=== PATIENT | female | born 1975 | race Caucasian/White ===

== ENCOUNTER 2020-04-13 13:31 | Emergency (ER) | payer OTHER, SELFPAY ==
[2020-04-13] VITALS (7 sets, daily range): BP systolic 124–132; BP diastolic 77–88; PULSE 60–82; RESP 15–16; TEMP 36.4; O2SAT 95–99; BMI 34.4
[2020-04-13 14:27] LABS: RBC Urine None Seen (0-5/HPF)
[2020-04-13 14:29] LABS: Appearance Urine UA CLEAR; Bilirubin Urine UA NEGATIVE (NEGATIVE); Color Urine UA YELLOW; Glucose Urine UA NEGATIVE (Negative); Ketones Urine UA NEGATIVE (NEGATIVE); Leukocyte Esterase Urine UA NEGATIVE (NEGATIVE); Nitrite Urine UA NEGATIVE (Negative); Occult Blood Urine UA NEGATIVE (Negative); Protein Urine UA TRACE (Negative); Specific Gravity Urine UA >=1.030 (1.000-1.035); Urobilinogen Urine UA 0.2 E.U./dL (0.2)
[2020-04-13 14:43] LABS: Bacteria Urine Occasional (0-1); Culture Indicated Urine Specimen Cultured; Squamous Epithelial Cell Urine 0-1 /HPF (0-5/HPF); WBC Urine 1-5/HPF (0-5/HPF)
[2020-04-13 15:55] LABS: Add Manual Diff / Slide Review NO; Basophils Absolute Auto 0 /uL (0-100); Basophils Percent Auto 0.5 % (0-2); Eosinophils Absolute Auto 300 /uL (0-450); Eosinophils Percent Auto 2.7 % (2-4); Hematocrit 37.3 % (36-46); Hemoglobin 12.8 g/dL (12.0-16.0); Lymphocytes Absolute Auto 2500 /uL (1100-4500); Lymphocytes Percent Auto 24.7 % (25-40); Mean Corpuscular HGB Conc 34.4 % (30-36); Mean Corpuscular Hemoglobin 31.3 PG (26-34); Monocytes Absolute Auto 600 /uL (0-900); Monocytes Percent Auto 6.2 % (3-14); Neutrophils Absolute Auto 6600 /uL (1500-7000); Neutrophils Percent Auto 65.9 % (50-75); Platelet Count 240 X10^3/uL (150-400); Red Cell Distribution Width 12.4 % (11.6-14.8)
[2020-04-13 16:07] LABS: Alanine Aminotransferase 133 IU/L (<35); Albumin Globulin Ratio 1.1 (1.0-2.8); Alkaline Phosphatase 132 U/L (38-126); Aspartate Aminotransferase 100 IU/L (14-36); BUN Creatinine Ratio 14.2 (6-22); Bilirubin Total 0.6 mg/dL (0.2-1.3); Blood Urea Nitrogen 21 mg/dL (7-17); Carbon Dioxide 26 mmol/L (22-32); Chloride 106 mmol/L (98-107); Estimated Glomerular Filt Rate 38.1 mL/min (>60); Globulin 3.7 g/dL (1.7-4.1); Glucose 89 mg/dL (70-100); HEMOLYSIS < 15 (0-50); Potassium 4.1 mmol/L (3.4-5.1); Sodium 138 mmol/L (137-145); Total Protein 7.7 g/dL (6.3-8.2)
--- NOTE | 2020-04-13 16:35 | ED.FEMALEGU ---
HPI - Female Genitourinary General Chief complaint: Urogenital-Female Stated complaint: UTI dx 04/10, worsening kidney pain Time Seen by Provider: 04/13/20 15:49 Source: patient Mode of arrival: Ambulatory Limitations: no limitations History of Present Illness HPI Narrative: Patient is a 45-year-old female with history of fibromyalgia and recent diagnosis of UTI 3 days ago started on Cipro presenting with increasing right flank pain radiating to her front. She says she does have some chronic ongoing back pain on sometimes has pain down to her leg but now seems to be more on her stomach. She feels nauseous at times no vomiting. Sometime she has been waking up in a drenching sweat, unclear if she has had a fever. She has no prior history of kidney stones. She has been taking [id number] Momo for pain and she says it has not helped. MD Complaint: UTI Onset (ago): day(s) Female Urogenital Radiation: R Flank Severity: moderate Quality: Sharp Duration: constant and progressively worsening Related Data Previous Rx's Medication Instructions Recorded omeprazole magnesium [Prilosec OTC] 20 mg PO QDAY #20 06/22/16 ondansetron [Zofran ODT] 4 mg SUBLINGUAL Q6HP PRN #10 odt 06/22/16 hydrocodone-acetaminophen 1 tab PO Q6H PRN #10 tab 04/13/20 ondansetron 4 mg PO Q8H PRN #10 tab 04/13/20 Allergies Allergy/AdvReac Type Severity Reaction Status Date / Time fentanyl [FENTANYL] Allergy Severe HALLUCINATIONS, Unverified 07/06/17 12:04 EMOTIONAL LABILITY Sulfa (Sulfonamide Allergy Unknown HIVES, Unverified 07/06/17 12:04 Antibiotics) DIFFICULTY [SULFA (SULFONAMIDE BREATHING ANTIBIOTICS)] sulfamethoxazole Allergy Unknown Unverified 07/06/17 12:04 [From ] trimethoprim [From ] Allergy Unknown Unverified 07/06/17 12:04 IV DYE CONTRAST Allergy Unknown HIVES Uncoded 07/06/17 12:04 Review of Systems Review of Systems Narrative: GENERAL:+ sweats, +fever Denies chills, fatigue, malaise, travel HEENT: Denies sinus pain, ear pain, sore throat, difficulty swallowing, neck pain RESPIRATORY: Denies dyspnea, cough, wheezing, hemoptysis, sputum. CARDIOVASCULAR: Denies chest pain, palpitations, orthopnea, edema GASTROINTESTINAL: Denies nausea, vomiting, abdominal pain, diarrhea, constipation, melena. : See HPI MUSCULOSKELETAL: Denies weakness, joint pain, or bony pain SKIN: No rash, no erythema, no pruritus NEUROLOGIC: Denies weakness, dizziness, headache, numbness, change in speech, confusion PSYCHIATRIC: No concerning psychosocial issues. 12 point review of systems is negative except for those stated above and HPI Patient History Medical History (Updated 04/13/20 @ 18:23 by Felisa Mckeon DO) Anxiety Bipolar disorder, unspecified Depression Fibromyalgia Hoarding behavior Interpersonal problem Learning disabilities Stress Surgical History (Updated 04/13/20 @ 17:01 by Felisa Mckeon DO) Status post appendectomy Status post cholecystectomy Substance Use Type: marijuana Exam Initial Vital Signs Initial Vital Signs: Vital Signs Temperature 97.6 F 04/13/20 14:06 Pulse Rate 72 04/13/20 14:06 Respiratory Rate 16 04/13/20 14:06 Blood Pressure 132/82 04/13/20 14:06 Pulse Oximetry 98 04/13/20 14:06 GENERAL: 45-year-old female appears comfortable on bed and in no acute distress. HEENT: Head atraumatic,EOMI, pupils reactive, face symmetric, moist mucous membranes CARDIOVASCULAR: Regular rate and rhythm without murmurs, rubs or gallops. RESPIRATORY: Breath sounds equal bilaterally, no wheezes rales or rhonchi. ABDOMEN: Soft, severe suprapubic tenderness right lower quadrant pain some left lower quadrant pain as well no guarding or rebound : Right CVA tenderness EXTREMITIES: Normal range of motion, no clubbing or edema. Neurovascularly intact NEUROLOGICAL: Alert and oriented x4.Normal gait and speech. SKIN: Warm, dry, no laceration, no petechiae, no rashes or lesions. Course Orders Ordered: ED Orders 04/13/20 14:22 Test Urine Stat Urinalysis and Microscopic Stat Urine Culture Stat 04/13/20 15:43 CBC Auto Diff [Complete Blood Count AUTO DIFF] Stat CMP [Comprehensive Metabolic Panel] Stat 04/13/20 16:39 CT kidney ureter bladder (KUB) Stat Discontinued Medications Ketorolac Tromethamine (Ketorolac 60 Mg/2 Ml Vial) 15 mg IV NOW ONE Stop: 04/13/20 16:40 Last Admin: 04/13/20 16:52 Dose: 15 mg Documented by: MELVIN Vital Signs Vital signs: Vital Signs - 8 hr 04/13/20 14:06 04/13/20 15:43 04/13/20 16:00 Temperature 97.6 F Pulse Rate 72 65 67 Respiratory Rate 16 Blood Pressure 132/82 129/77 131/80 Pulse Oximetry 98 98 95 04/13/20 16:30 04/13/20 17:00 04/13/20 17:30 Temperature Pulse Rate 72 65 60 Respiratory Rate Blood Pressure Pulse Oximetry 97 96 95 MDM - Female Genitourinary Lab Data Attestation: I reviewed the patient's lab results. Result diagrams: 04/13/20 15:43 04/13/20 15:43 Labs: Lab Results 04/13/20 04/13/20 04/13/20 Range/Units 14:22 14:22 15:43 WBC 10.0 (4.5-11.0) X10^3/uL RBC 4.10 (4.0-5.2) X10^6/uL Hgb 12.8 (12.0-16.0) g/dL Hct 37.3 (36-46) % MCV 91.0 (80-100) fL MCH 31.3 (26-34) PG MCHC 34.4 (30-36) % RDW 12.4 (11.6-14.8) % Plt Count 240 (150-400) X10^3/uL Neut % (Auto) 65.9 (50-75) % Lymph % (Auto) 24.7 L (25-40) % [place] % (Auto) 6.2 (3-14) % Eos % (Auto) 2.7 (2-4) % Baso % (Auto) 0.5 (0-2) % Neut # (Auto) 6600 (1473-6098) /uL Lymph # (Auto) 2500 (7270-3059) /uL [place] # (Auto) 600 (0-900) /uL Eos # (Auto) 300 (0-450) /uL Baso # (Auto) 0 (0-100) /uL Sodium (137-145) mmol/L Potassium (3.4-5.1) mmol/L Chloride (98-107) mmol/L Carbon Dioxide (22-32) mmol/L BUN (7-17) mg/dL Creatinine (0.52-1.04) mg/dL Estimated GFR (>60) mL/min BUN/Creatinine Ratio (6-22) Glucose (70-100) mg/dL Calcium (8.4-10.2) mg/dL Total Bilirubin (0.2-1.3) mg/dL AST (14-36) IU/L ALT (<35) IU/L Alkaline Phosphatase (38-126) U/L Total Protein (6.3-8.2) g/dL Albumin (3.5-5.0) g/dL Globulin (1.7-4.1) g/dL Albumin/Globulin Ratio (1.0-2.8) Urine Color Yellow Urine Appearance Clear Urine pH 5.0 (4.5-8.0) Ur Specific [place] >=1.030 H (1.000-1.035) Urine Protein Trace H (Negative) Urine Glucose (UA) Negative (Negative) g/dL Urine Ketones Negative (NEGATIVE) Urine Occult Blood Negative (Negative) Urine Nitrate Negative (Negative) Urine Bilirubin Negative (NEGATIVE) Urine Urobilinogen 0.2 (0.2) E.U./dL Ur Leukocyte Esterase Negative (NEGATIVE) Urine RBC None seen (0-5/HPF) Urine WBC 1-5/hpf (0-5/HPF) Ur Squamous Epith Cells 0-1 /hpf (0-5/HPF) Urine Bacteria Occasional (0-1) (None) Ur Culture Indicated? Specimen cultured Urine Test Negative (Negative) 04/13/20 Range/Units 15:43 WBC (4.5-11.0) X10^3/uL RBC (4.0-5.2) X10^6/uL Hgb (12.0-16.0) g/dL Hct (36-46) % MCV (80-100) fL MCH (26-34) PG MCHC (30-36) % RDW (11.6-14.8) % Plt Count (150-400) X10^3/uL Neut % (Auto) (50-75) % Lymph % (Auto) (25-40) % [place] % (Auto) (3-14) % Eos % (Auto) (2-4) % Baso % (Auto) (0-2) % Neut # (Auto) (7113-0860) /uL Lymph # (Auto) (5415-3768) /uL [place] # (Auto) (0-900) /uL Eos # (Auto) (0-450) /uL Baso # (Auto) (0-100) /uL Sodium 138 (137-145) mmol/L Potassium 4.1 (3.4-5.1) mmol/L Chloride 106 (98-107) mmol/L Carbon Dioxide 26 (22-32) mmol/L BUN 21 H (7-17) mg/dL Creatinine 1.48 H (0.52-1.04) mg/dL Estimated GFR 38.1 L (>60) mL/min BUN/Creatinine Ratio 14.2 (6-22) Glucose 89 (70-100) mg/dL Calcium 9.0 (8.4-10.2) mg/dL Total Bilirubin 0.6 (0.2-1.3) mg/dL AST 100 H (14-36) IU/L ALT 133 H (<35) IU/L Alkaline Phosphatase 132 H (38-126) U/L Total Protein 7.7 (6.3-8.2) g/dL Albumin 4.0 (3.5-5.0) g/dL Globulin 3.7 (1.7-4.1) g/dL Albumin/Globulin Ratio 1.1 (1.0-2.8) Urine Color Urine Appearance Urine pH (4.5-8.0) Ur Specific [place] (1.000-1.035) Urine Protein (Negative) Urine Glucose (UA) (Negative) g/dL Urine Ketones (NEGATIVE) Urine Occult Blood (Negative) Urine Nitrate (Negative) Urine Bilirubin (NEGATIVE) Urine Urobilinogen (0.2) E.U./dL Ur Leukocyte Esterase (NEGATIVE) Urine RBC (0-5/HPF) Urine WBC (0-5/HPF) Ur Squamous Epith Cells (0-5/HPF) Urine Bacteria (None) Ur Culture Indicated? Urine Test (Negative) Imaging Data CT scan - abdomen/pelvis: Radiologist's Impression: PROCEDURE: CT KIDNEY URETER BLADDER (KUB) INDICATIONS: right flank pain TECHNIQUE: Noncontrast 5 mm thick sections acquired from the diaphragms to the symphysis. 5 mm thick coronal and sagittal reformats were then performed. For radiation dose reduction, the following was used: automated exposure control, adjustment of mA and/or kV according to patient size. COMPARISON: None. FINDINGS: Image quality: Excellent. Lung bases: Lung bases are clear. Heart size is normal. Urinary system: Both kidneys are normal in size. Obstructing calculus at the right UVJ measuring 3 mm, (2/84). Moderate right hydroureteronephrosis. Additional nonobstructing calculus in the mid left kidney measuring 2 mm. Bladder wall thickness is normal; no calcified bladder stones. Other solid organs: Liver is normal in size. Gallbladder is surgically absent. Pancreas is normal in contours. Spleen is normal in size. No adrenal nodules. Peritoneum and bowel: Unenhanced bowel loops demonstrate normal wall thickness and caliber. No free fluid or air. The appendix is surgically absent. Nodes and vessels: No retroperitoneal or mesenteric adenopathy by size criteria. Aorta and inferior vena cava are normal in caliber. Abdominal wall: No ventral hernias. Pelvis: No free pelvic fluid. No inguinal hernias or adenopathy. Elongated appearing anteverted uterus. Bones: No suspicious bony lesions. No vertebral body compression fractures. IMPRESSION: 1. Obstructing calculus at the right UVJ measuring 3 mm. Moderate right hydroureteronephrosis. 2. Additional nonobstructing left kidney stone. 3. Appendix is surgically absent. Dictated by: Bobby Gil M.D. on 04/13/2020 at 18:11 Approved by: Bobby Gil M.D. on 04/13/2020 at 18:16 MDM Narrative Medical decision making narrative: Patient's pain is significantly better after Toradol. Kidney stone is found 3 mm at UVJ. Urine today does not show any infection however recommend she finish her antibiotic. Intake pain medication as needed for her kidney stone. Discharge Plan Departure Patient Disposition: Home Clinical Impression: Kidney stone on right side Instructions: DI for Kidney Stones Activity Restrictions/Additional Instructions: * You've been diagnosed with kidney stone * What to do: Increase fluid intake, Strain urine, try to catch stone * Please follow-up with your primary care provider in the next 2-3 days, you may require urology consultation please discuss this with -If you should have fever, or pain is uncontrolled with medication at home or any other concerning symptoms return to ER for further evaluation MEDICATIONS Take Motrin 800 mg every 8 hours as needed for pain Take [place] every 6 hours if needed for severe pain Take Zofran every 4-6 hours if needed for nausea -continue taking your antibiotic as previously prescribed CONTROLLED SUBSTANCE DISCHARGE (Narcotoic/benzodiazepine) 1. You have been prescribed narcotic medications, it does have acetaminophen/Tylenol/paracetamol in it so do not take extra Tylenol or Tylenol containing products 2. Please understand that we cannot provide further refills of narcotics, benzodiazepines or controlled substances through the ED and her pain management will need to be through your provider. 3. While on these medications you cannot drive or operate heavy machinery. 4. You cannot sign legal documents or perform any duties such as this. 5. As long as you're taking opiate pain medications he should also be taking a stool softener such as Colace, Dulcolax, MiraLAX or prune juice, to help avoid constipation. Prescriptions: New hydrocodone-acetaminophen 5-325 mg tablet 1 tab PO Q6H PRN (Reason: pain) Qty: 10 RF: 0 ondansetron 4 mg tablet,disintegrating 4 mg PO Q8H PRN (Reason: nausea and vomiting) Qty: 10 RF: 0 No Action omeprazole magnesium [Prilosec OTC] 20 MG tablet,delayed release (DR/EC) 20 mg PO QDAY Qty: 20 RF: 0 ondansetron [Zofran ODT] 4 MG tablet,disintegrating 4 mg Sublingual Q6HP PRNQty: 10 RF: 0
--- NOTE | 2020-04-13 16:39 | DI.CT.S_ITS ---
PROCEDURE: CT KIDNEY URETER BLADDER (KUB) INDICATIONS: right flank pain TECHNIQUE: Noncontrast 5 mm thick sections acquired from the diaphragms to the symphysis. 5 mm thick coronal and sagittal reformats were then performed. For radiation dose reduction, the following was used: automated exposure control, adjustment of mA and/or kV according to patient size. COMPARISON: None. FINDINGS: Image quality: Excellent. Lung bases: Lung bases are clear. Heart size is normal. Urinary system: Both kidneys are normal in size. Obstructing calculus at the right UVJ measuring 3 mm, (2/84). Moderate right hydroureteronephrosis. Additional nonobstructing calculus in the mid left kidney measuring 2 mm. Bladder wall thickness is normal; no calcified bladder stones. Other solid organs: Liver is normal in size. Gallbladder is surgically absent. Pancreas is normal in contours. Spleen is normal in size. No adrenal nodules. Peritoneum and bowel: Unenhanced bowel loops demonstrate normal wall thickness and caliber. No free fluid or air. The appendix is surgically absent. Nodes and vessels: No retroperitoneal or mesenteric adenopathy by size criteria. Aorta and inferior vena cava are normal in caliber. Abdominal wall: No ventral hernias. Pelvis: No free pelvic fluid. No inguinal hernias or adenopathy. Elongated appearing anteverted uterus. Bones: No suspicious bony lesions. No vertebral body compression fractures. IMPRESSION: 1. Obstructing calculus at the right UVJ measuring 3 mm. Moderate right hydroureteronephrosis. 2. Additional nonobstructing left kidney stone. 3. Appendix is surgically absent. Dictated by: Bobby Gil M.D. on 04/13/2020 at 18:11 Approved by: Bobby Gil M.D. on 04/13/2020 at 18:16
[2020-04-13] MEDS: KETOROLAC 60 MG/2 ML VIAL 15 MG IV (16:52)
[2020-04-13 17:57] LABS: Pregnancy Test Urine Negative (Negative)
== END 2020-04-13 19:08 | disposition home or self-care (01) ==
PROVIDERS: Emergency Provider Emergency Medicine
DX: N20.0 Calculus of kidney (principal); R11.0 Nausea
CPT/HCPCS: 36415; 74176; 80053; 81001; 81025; 85025; 87086; 96374; 99281; 99284; J1885

== ENCOUNTER → 2021-01-10 12:55 | Outpatient (CLI) | payer OTHER, SELFPAY ==
--- NOTE | 2021-01-10 12:58 | DI.MRI.S_ITS ---
PROCEDURE: MR KNEE RT WO CON INDICATIONS: Pain in right knee TECHNIQUE: Noncontrast sagittal PD fast spin echo and T2 fast spin echo with fat saturation, sagittal 3-D FLASH with fat saturation; coronal T1 spin echo and PD fast spin echo with fat saturation, and axial PD fast spin echo with fat saturation through the knee. COMPARISON: None. FINDINGS: Image quality: Excellent. Menisci: The medial and lateral menisci demonstrate normal morphology and internal signal. The meniscal root ligaments appear intact. Cruciate ligaments: The anterior and posterior cruciate ligaments appear intact. Medial structures: The medial collateral ligament appears intact. The visualized portions of the pes anserinus tendons appear normal. No abnormal bursal fluid. Lateral structures: The lateral collateral ligament complex is intact. The popliteus tendon appears normal; the popliteofibular ligament appears intact. The iliotibial band appears normal. Anterior structures: The quadriceps and patellar tendons appear intact. Patellar alignment is normal. No femoral trochlear dysplasia or ventral trochlear prominence. No edema in the infrapatellar fat pad. Bones and cartilage: No bone marrow contusions or fractures. The cartilage of the medial and lateral compartments appears normal in thickness. A 1.4 cm fissure is seen in the patella apex hyaline cartilage (6/9). An additional 1.5 cm defect is seen in the trochlear hyaline cartilage (8/17). Joint space: Small suprapatellar joint effusion. No Fischer's cyst. Normal appearing synovial plicae are incidentally noted. IMPRESSION: 1. No evidence of internal derangement. 2. Fissures of the patellar and trochlear hyaline cartilage as detailed above. Dictated by: Avel Montiel M.D. on 01/12/2021 at 8:32 Approved by: Avel Montiel M.D. on 01/12/2021 at 8:39
== END ==
PROVIDERS: PCP Family Medicine; Referring Provider Family Medicine; Visit Provider Family Medicine
DX: M25.561 Pain in right knee (principal)
CPT/HCPCS: 73721

== ENCOUNTER → 2021-02-26 16:52 | Outpatient (CLI) | payer OTHER, SELFPAY ==
--- NOTE | 2021-02-26 | DI.MG.S_ITS ---
BILATERAL DIGITAL SCREENING MAMMOGRAM 3D/2D WITH CAD: 02/26/2021 CLINICAL: Routine screening. Comparison is made to exams dated: 01/26/2016 mammogram - [facility], 12/08/2015 mammogram, 07/21/2015 ultrasound, and 07/21/2015 mammogram - [facility]. The tissue of both breasts is predominantly fatty. Current study was also evaluated with a Computer Aided Detection (CAD) system. There is a biopsy clip in the right breast. No significant masses, calcifications, or other findings are seen in either breast. There has been no significant interval change. IMPRESSION: NEGATIVE There is no mammographic evidence of malignancy. A 1 year screening mammogram is recommended. This exam was interpreted at Station ID: [id number]. NOTE: For mammograms, a report in lay terms will be sent to the patient. Approximately 15% of breast malignancies will not be visualized mammographically. In the management of a palpable breast mass, a negative mammogram must not discourage biopsy of a clinically suspicious lesion. Electronically Signed By: Gurmeet henry/padma:02/27/2021 07:16:29 copy to: Erasmo Jenkins letter sent: Normal Exam ACR BI-RADS Category 1: Negative [id number]
== END ==
PROVIDERS: PCP Family Medicine; Referring Provider Family Medicine; Visit Provider Family Medicine
DX: Z12.31 Encounter for screening mammogram for malignant neoplasm of breast (principal)
CPT/HCPCS: 77063; 77067

== ENCOUNTER → 2021-03-13 14:52 | Outpatient (CLI) | payer OTHER, SELFPAY ==
[2021-03-14 06:32] LABS: Candida species Negative (Negative); Gardnerella vaginalis Positive (Negative); Trichomoas vaginalis Negative (Negative)
== END ==
PROVIDERS: PCP Family Medicine; Visit Provider Obstetrics & Gynecology
DX: N89.8 Other specified noninflammatory disorders of vagina (principal)
CPT/HCPCS: 87480; 87510; 87660

== ENCOUNTER 2021-06-09 11:15 | Outpatient (RCR) | payer OTHER, SELFPAY ==
--- NOTE | 2021-04-23 17:17 | PT.OIE ---
Current Diagnoses Other specified disorders of muscle (04/28/21) Past Medical History (Last Reviewed 03/14/21 @ 21:31 by Tara Esteban MD) Allergies Ankle pain Anxiety (~2001) Asthma Bipolar disorder, unspecified Chronic back pain Depression (~2001) Far-sightedness Fibromyalgia History of section (~2002) Hoarding behavior Hyperthyroidism (~2016) Interpersonal problem Kidney stones (~2019) Learning disabilities Migraines Shoulder pain Status post appendectomy (~2018) Status post breast reduction (~2009) Status post cholecystectomy Stress Past Surgical History (Last Reviewed 03/14/21 @ 21:31 by Tara Esteban MD) Anesthesia History of section (~2002) Status post appendectomy (~2018) Status post breast reduction (~2009) Status post cholecystectomy Visit Care Team Role Provider Type Nafisa Jeffers DO Family Provider Non-Staff Primary Care Provider Specialty: Medical Address: [address] [place] [address], [id number] Email: Tara Esteban MD Attending Provider Physician Referring Provider Specialty: CO FOUNDER AND DIRECTOR Address: [address] [place] [address], [facility] Email: Physical Therapy Initial Evaluation PT-OP-A Visit Information Start: 04/23/21 15:22 Freq: Status: Active Protocol: Document 04/23/21 15:20 [facility] (Rec: 04/23/21 15:38 [facility] [id number]) Out-Patient Physical Therapy Visit Information Visit Information Visit Type Initial Evaluation Visit Start Time 15:20 Visit Stop Time 16:00 Total Visit Minutes 40 Visit Number 1 Evaluation Information Evaluation Date 04/23/21 PT-OP-B Current Condition Start: 04/23/21 15:22 Freq: Status: Active Protocol: Document 04/23/21 15:20 [facility] (Rec: 04/23/21 15:38 [facility] [id number]) Current Condition History of Current Condition Onset Date 15 years Current Complaints dysparunea, with pap smears she has pain and the plastic spectum breaks, sh History of Current Condition she had a cyst and this was removed right at the beginning of covid. Symptoms have been going on x 15 years. She had a rough with her daughter. SHe was 5 months with her daughter before she knew she was pregnanct. SHe had had 5 miscarrieges prior to her daughter being born. Her baby was 5 6 oz with a emercency c section. SHe had preclampsia with her daughter and then ecoli afterwards and went home with a IV. SHe will be 19 on the second. She doesnthave any sensation in her pelvic floor with intercourse. SHe is sore afterwards. She has to use lube all the time. She did get estrogen cream today so will start using it. Treatment Goals Patient/Caregiver Goals decrease pelvic pain and for pt to be able to be intimate with her without pain PT-OP-C Subjective Start: 04/23/21 15:22 Freq: Status: Active Protocol: Document 04/23/21 15:15 [facility] (Rec: 04/28/21 14:16 [facility] [id number]) Patient Questionnaires Pelvic Pain and Urgency/Frequency Patient Symptom Scale Pelvic Pain Score 15 OP-PT Pain Assessment Pain Assessment Grid Paper Pain Assessment Grid Completed Yes Location low back Intensity 5 Scale Used Numeric (0 - 10) PT-OP-F Manual Assessment Start: 04/28/21 14:17 Freq: Status: Active Protocol: Document 04/23/21 15:15 [facility] (Rec: 04/28/21 14:18 [facility] [id number]) Manual Assessments Soft Tissue Assessment Soft Tissue Mobility Assessment tightness in the piriformis muscle bilaterally at the sacral attachments, tender all along the left TIMO of the sacrum, tender at the coccyx Joint Mobility Assessment Joint Mobility Assessment hypomobility T-spine, exaggerated lumbar lordosis PT-OP-I Pelvic Floor Start: 04/23/21 15:22 Freq: Status: Active Protocol: Document 04/23/21 15:15 [facility] (Rec: 04/28/21 14:16 [facility] [id number]) Pelvic Floor Assessment Urine Pelvic Floor Surgery No Leakage Size Small Other Leakage Causes leakage only with strong cough or sneeze Pelvic Clock Pelvic Clock 3-6 Hypertonic,Tenderness, Tightness Pelvic Clock 6-9 Guarding Pelvic Clock 9-12 Guarding Pelvic Clock Other left side of the levator ani is guarded on tight with pain Contraction Ability Voluntary Contraction Moderate Voluntary Relaxation Moderate Manual Muscle Testing Left 4 Manual Muscle Testing Right 4 Manual Muscle Testing Anterior 4 Manual Muscle Testing Posterior 4 PT-OP-Q Treatments Start: 04/23/21 15:22 Freq: Status: Active Protocol: Document 04/23/21 15:20 [facility] (Rec: 04/23/21 17:09 [facility] [id number]) Therapeutic Exercises Supine Exercises piriformis stretch Reps/Minutes hold 1-2 minutes supine modified squat stretch Reps/Minutes hold 1-2 minutes Self-Care/Home Management Treatment Activities Self-Care/Home Management Activities pt was given a size XS dilator to help with MFR on the left lateral wall of the levator ani PT-OP-T Assessment and Plan Start: 04/23/21 15:22 Freq: Status: Active Protocol: Document 04/23/21 15:15 [facility] (Rec: 04/28/21 14:23 [facility] [id number]) Physical Therapy Assessment Rehab Potential Rehabilitation Potential Excellent Evaluation Complexity Number of Personal Factors/Comorbidities 0 Number of Body Systems Impaired 1-2 Clinical Presentation at Evaluation Stable Impairments Impairments Activity Tolerance,Soft Tissue Mobility,Strength,Tone Goals 3 Impairment dysparunia that limits ability to be intimate with her Cloth Cutting Machine Operator Goal (LTG) Lexy has been educated in techniqes to help relax the levator ani and she is able to resume intercourse without pain LTG Duration 8 weekis 2 Impairment levator ani muscle spasm and guarding left greater than right, pain on the left side with palpation Cloth Cutting Machine Operator Goal (LTG) With PT techniques and stretches Lexy is able to fully relax her levator ani LTG Duration 8 weeks 1 Impairment elevated resting tone of the levator ani Short Term Goal (STG) PT is able to relax her pelvic floor from 15 uv on EMG biofeedback to 5 uv or lower STG Duration 5 weeks Cloth Cutting Machine Operator Goal (LTG) Lexy is able to relax her pelvic floor to baseline with EMG biofeedback LTG Duration 8 weeks Assessment Summary Assessment Lexy is a 46 year old female who presents to physical therapy today with both low back and sacral pain as well as pelvic pain symptoms. Her chief complaint is dysparunia. With examination today she is guarded in the posterior and lateral sharp of the levator ani but very hypertrophied on the left lateral wall with increased pain in this location. She has difficulty relaxing her pelvic floor and when attempting a pelvic floor contraction she tilts her pelvis posteriorly. There is guarding from her gluteals at rest. I started Lexy today with stretches for her pelvic floor and she was given a size XS dilator to begin working on pelvic relaxation. Lexy is a good candidate for pelvic rehab. Physical Therapy Plan Frequency and Duration Frequency of Treatment 1x/Week Duration of Treatment 12 Plan of Care Start Date 04/23/21 Plan of Care End Date 07/21/21 Therapeutic Interventions Therapeutic Interventions Home Exercise Program,Manual Therapy,Neuromuscular Re- education,Patient/Caregiver Education,Self-Care/Home Management,Soft Tissue Mobilization,Therapeutic Exercises Modalities Biofeedback Next Visit Focus/Plan Next Note Type Treatment Note Next Visit Plan Begin EMG biofeedback for relaxed awareness of the pelvic floor muscles, review stretches given today.
--- NOTE | 2021-04-23 17:18 | PT.OPPOC ---
Physical, Occupational & Speech Therapy At [facility] Current Diagnoses Other specified disorders of muscle (04/28/21) Visit Care Team Role Provider Type Nafisa Jeffers DO Family Provider Non-Staff Primary Care Provider Specialty: Medical Address: [address] [place] [address], [id number] Email: Tara Esteban MD Attending Provider Physician Referring Provider Specialty: INTERNATIONAL AFFAIRS VICE PRESIDENT Address: [address] [place] [address], [facility] Email: Plan Of Care PT-OP-T Assessment and Plan Start: 04/23/21 15:22 Freq: Status: Active Protocol: Document 04/23/21 15:15 [facility] (Rec: 04/28/21 14:23 [facility] [id number]) Physical Therapy Assessment Rehab Potential Rehabilitation Potential Excellent Evaluation Complexity Number of Personal Factors/Comorbidities 0 Number of Body Systems Impaired 1-2 Clinical Presentation at Evaluation Stable Impairments Impairments Activity Tolerance,Soft Tissue Mobility,Strength,Tone Goals 3 Impairment dysparunia that limits ability to be intimate with her Charge Hand Goal (LTG) Lexy has been educated in techniques to help relax the levator ani and she is able to resume intercourse without pain LTG Duration 8 weeks 2 Impairment levator ani muscle spasm and guarding left greater than right, pain on the left side with palpation Charge Hand Goal (LTG) With PT techniques and stretches Lexy is able to fully relax her levator ani LTG Duration 8 weeks 1 Impairment elevated resting tone of the levator ani Short Term Goal (STG) PT is able to relax her pelvic floor from 15 uv on EMG biofeedback to 5 uv or lower STG Duration 5 weeks Charge Hand Goal (LTG) Lexy is able to relax her pelvic floor to baseline with EMG biofeedback LTG Duration 8 weeks Assessment Summary Assessment Lexy is a 46 year old female who presents to physical therapy today with both low back and sacral pain as well as pelvic pain symptoms. Her chief complaint is dysparunia. With examination today she is guarded in the posterior and lateral sharp of the levator ani but very hypertrophied on the left lateral wall with increased pain in this location. She has difficulty relaxing her pelvic floor and when attempting a pelvic floor contraction she tilts her pelvis posteriorly. There is guarding from her gluteals at rest. I started Lexy today with stretches for her pelvic floor and she was given a size XS dilator to begin working on pelvic relaxation. Lexy is a good candidate for pelvic rehab. Physical Therapy Plan Frequency and Duration Frequency of Treatment 1x/Week Duration of Treatment 12 Plan of Care Start Date 04/23/21 Plan of Care End Date 07/21/21 Therapeutic Interventions Therapeutic Interventions Home Exercise Program,Manual Therapy,Neuromuscular Re- education,Patient/Caregiver Education,Self-Care/Home Management,Soft Tissue Mobilization,Therapeutic Exercises Modalities Biofeedback Next Visit Focus/Plan Next Note Type Treatment Note Next Visit Plan Begin EMG biofeedback for relaxed awareness of the pelvic floor muscles, review stretches given today. Plan of Care Dates Plan of Care Start Date 04/23/21 Plan of Care End Date 07/21/21 Electronically Signed by: Shelbie Jamison, PT 04/28/21 1763 Please Sign and Return: I have reviewed this Plan of Care and certify that the skilled therapy services above are required to meet the patient?s needs. Physician Signature Date Printed Name and Credentials Clinical Instructor Signature Printed Name and Credentials
--- NOTE | 2021-04-28 17:38 | PT.OTN ---
Current Diagnoses Other specified disorders of muscle (04/28/21) Physical Therapy Treatment Note PT-OP-A Visit Information Start: 04/23/21 15:22 Freq: Status: Active Protocol: Document 04/28/21 15:15 [facility] (Rec: 04/28/21 17:38 [facility] [id number]) Out-Patient Physical Therapy Visit Information Visit Information Visit Type Treatment Note Visit Start Time 15:15 Visit Stop Time 16:00 Total Visit Minutes 45 Visit Number 2 PT-OP-B Current Condition Start: 04/23/21 15:22 Freq: Status: Active Protocol: Document 04/23/21 15:20 [facility] (Rec: 04/23/21 15:38 [facility] [id number]) Current Condition History of Current Condition Onset Date 15 years Current Complaints dysparunea, with pap smears she has pain and the plastic spectum breaks, sh History of Current Condition she had a cyst and this was removed right at the beginning of cov. Symptoms have been going on x 15 years. She had a rough with her daughter. SHe was 5 months with her daughter before she knew she was pregnanct. SHe had had 5 miscarrieges prior to her daughter being born. Her baby was 5 6 oz with a emercency c section. SHe had preclampsia with her daughter and then ecoli afterwards and went home with a IV. SHe will be 19 on the second. She doesnthave any sensation in her pelvic floor with intercourse. SHe is sore afterwards. She has to use lube all the time. She did get estrogen cream today so will start using it. Treatment Goals Patient/Caregiver Goals decrease pelvic pain and for pt to be able to be intimate with her without pain PT-OP-C Subjective Start: 04/23/21 15:22 Freq: Status: Active Protocol: Document 04/28/21 15:15 [facility] (Rec: 04/28/21 17:38 [facility] [id number]) OP-PT Subjective Patient Comments Patient Comments pt notes she has been working on the stretches. She notes the dilator has been difficlt to use. PT-OP-F Manual Assessment Start: 04/28/21 14:17 Freq: Status: Active Protocol: Document 04/23/21 15:15 [facility] (Rec: 04/28/21 14:18 [facility] [id number]) Manual Assessments Soft Tissue Assessment Soft Tissue Mobility Assessment tightness in the piriformis muscle bilaterally at the sacral attachments, tender all along the left TIMO of the sacrum, tender at the coccyx Joint Mobility Assessment Joint Mobility Assessment hypomobility T-spine, exaggerated lumbar lordosis PT-OP-I Pelvic Floor Start: 04/23/21 15:22 Freq: Status: Active Protocol: Document 04/23/21 15:15 [facility] (Rec: 04/28/21 14:16 [facility] [id number]) Pelvic Floor Assessment Urine Pelvic Floor Surgery No Leakage Size Small Other Leakage Causes leakage only with strong cough or sneeze Pelvic Clock Pelvic Clock 3-6 Hypertonic,Tenderness, Tightness Pelvic Clock 6-9 Guarding Pelvic Clock 9-12 Guarding Pelvic Clock Other left side of the levator ani is guarded on tight with pain Contraction Ability Voluntary Contraction Moderate Voluntary Relaxation Moderate Manual Muscle Testing Left 4 Manual Muscle Testing Right 4 Manual Muscle Testing Anterior 4 Manual Muscle Testing Posterior 4 PT-OP-Q Treatments Start: 04/23/21 15:22 Freq: Status: Active Protocol: Document 04/28/21 15:15 [facility] (Rec: 04/28/21 17:38 [facility] [id number]) Therapeutic Exercises Supine Exercises piriformis stretch Supine Exercise Name reviewed for HEP supine modified squat stretch Supine Exercise Name reviewed for HEP Reps/Minutes hold 1-2 minutes Manual Therapy Treatment Soft Tissue Mobilization manual levator ani release Mobilization Type Myofascial Release Body Position Hooklying Comments worked on the left lateral wall of the levator ani, MFR and contract relax with gentle stretching Neuro Re-Education Treatment Other Activities EMG biofeedback for relax ed awareness of the pelvic floor Comments workered on resting tone reduction with EMG biofeedback . Pt started at 15 uv and with visualization she was able to relax down to 4 uv. Self-Care/Home Management Treatment Education Patient Education Home Exercise Program,Pain Management Other Education pt was given information on therawand pelvic floor wand that is curved to allow for easier access for self pelvic release. PT-OP-T Assessment and Plan Start: 04/23/21 15:22 Freq: Status: Active Protocol: Document 04/28/21 15:15 [facility] (Rec: 04/28/21 17:38 [facility] [id number]) Physical Therapy Assessment Assessment Summary Assessment Lexy was able to realx her pelvic floor down to 5 uv today following manual therapy techniques and EMG biofeedback for relaxed awareness. She tolerated MFR well and will continue to work on the stretches and dilator Physical Therapy Plan Frequency and Duration Frequency of Treatment 1x/Week Duration of Treatment 12 Plan of Care Start Date 04/23/21 Plan of Care End Date 07/21/21 Therapeutic Interventions Therapeutic Interventions Home Exercise Program,Manual Therapy,Neuromuscular Re- education,Patient/Caregiver Education,Self-Care/Home Management,Soft Tissue Mobilization,Therapeutic Exercises Modalities Biofeedback Next Visit Focus/Plan Next Note Type Treatment Note Next Visit Plan MFR of the levator ani, EMG biofeedback, down training of the pelvic floor
--- NOTE | 2021-05-26 15:12 | PT.OTN ---
Current Diagnoses Other specified disorders of muscle (05/26/21) Physical Therapy Treatment Note PT-OP-A Visit Information Start: 04/23/21 15:22 Freq: Status: Active Protocol: Document 05/26/21 14:29 [facility] (Rec: 05/26/21 15:11 [facility] [id number]) Out-Patient Physical Therapy Visit Information Visit Information Visit Start Time 14:30 Visit Stop Time 15:15 Total Visit Minutes 45 Visit Number 3 PT-OP-B Current Condition Start: 04/23/21 15:22 Freq: Status: Active Protocol: Document 04/23/21 15:20 [facility] (Rec: 04/23/21 15:38 [facility] [id number]) Current Condition History of Current Condition Onset Date 15 years Current Complaints dysparunea, with pap smears she has pain and the plastic spectum breaks, sh History of Current Condition she had a cyst and this was removed right at the beginning of . Symptoms have been going on x 15 years. She had a rough with her daughter. SHe was 5 months with her daughter before she knew she was pregnanct. SHe had had 5 miscarrieges prior to her daughter being born. Her baby was 5 6 oz with a emercency c section. SHe had preclampsia with her daughter and then ecoli afterwards and went home with a IV. SHe will be 19 on the second. She doesnthave any sensation in her pelvic floor with intercourse. SHe is sore afterwards. She has to use lube all the time. She did get estrogen cream today so will start using it. Treatment Goals Patient/Caregiver Goals decrease pelvic pain and for pt to be able to be intimate with her without pain PT-OP-C Subjective Start: 04/23/21 15:22 Freq: Status: Active Protocol: Document 05/26/21 14:29 [facility] (Rec: 05/26/21 15:11 [facility] [id number]) OP-PT Subjective Patient Comments Patient Comments pt reports she is doing really good, she has been able to have intercourse without any problem. She still feels some tightness on the left side PT-OP-F Manual Assessment Start: 04/28/21 14:17 Freq: Status: Active Protocol: Document 04/23/21 15:15 [facility] (Rec: 04/28/21 14:18 [facility] [id number]) Manual Assessments Soft Tissue Assessment Soft Tissue Mobility Assessment tightness in the piriformis muscle bilaterally at the sacral attachments, tender all along the left TIMO of the sacrum, tender at the coccyx Joint Mobility Assessment Joint Mobility Assessment hypomobility T-spine, exaggerated lumbar lordosis PT-OP-I Pelvic Floor Start: 04/23/21 15:22 Freq: Status: Active Protocol: Document 04/23/21 15:15 [facility] (Rec: 04/28/21 14:16 [facility] [id number]) Pelvic Floor Assessment Urine Pelvic Floor Surgery No Leakage Size Small Other Leakage Causes leakage only with strong cough or sneeze Pelvic Clock Pelvic Clock 3-6 Hypertonic,Tenderness, Tightness Pelvic Clock 6-9 Guarding Pelvic Clock 9-12 Guarding Pelvic Clock Other left side of the levator ani is guarded on tight with pain Contraction Ability Voluntary Contraction Moderate Voluntary Relaxation Moderate Manual Muscle Testing Left 4 Manual Muscle Testing Right 4 Manual Muscle Testing Anterior 4 Manual Muscle Testing Posterior 4 PT-OP-Q Treatments Start: 04/23/21 15:22 Freq: Status: Active Protocol: Document 05/26/21 14:29 [facility] (Rec: 05/26/21 15:11 [facility] [id number]) Therapeutic Exercises Supine Exercises templates for eccentric control and coordination Reps/Minutes x 5 min pelvic floor long holds contract/relax Reps/Minutes x 10 reps piriformis stretch Supine Exercise Name reviewed for HEP supine modified squat stretch Supine Exercise Name reviewed for HEP Manual Therapy Treatment Soft Tissue Mobilization manual levator ani release Mobilization Type Myofascial Release Body Position Hooklying Comments worked on the left lateral wall of the levator ani, MFR and contract relax with gentle stretching Neuro Re-Education Treatment Other Activities EMG biofeedback for relax ed awareness of the pelvic floor Comments today the average rest is a 4 uv pt was able to rest fully to baseline with her legs extended in supine PT-OP-T Assessment and Plan Start: 04/23/21 15:22 Freq: Status: Active Protocol: Document 05/26/21 14:29 [facility] (Rec: 05/26/21 15:11 [facility] [id number]) Physical Therapy Assessment Assessment Summary Assessment pt doing much better overall and her ability to relax her pelvic floor is improved. She has been able to have intercourse without pain. It is difficult for Carol to sustain a pelvic floor contraction more than 5 seconds and she does have some leakage with cough or sneeze so no we will work on her endurance and continue emphasize relaxed awarness of her pelvic floor. Physical Therapy Plan Frequency and Duration Frequency of Treatment 1x/Week Duration of Treatment 12 Plan of Care Start Date 04/23/21 Plan of Care End Date 07/21/21 Next Visit Focus/Plan Next Note Type Treatment Note Next Visit Plan begin progressing pelvic floor endurance training, continuing to keep working on relaxed awareness of the pelvic floor between contractions
--- NOTE | 2021-06-09 11:54 | PT.OTN ---
Current Diagnoses Other specified disorders of muscle (06/09/21) Physical Therapy Treatment Note PT-OP-A Visit Information Start: 04/23/21 15:22 Freq: Status: Active Protocol: Document 06/09/21 11:22 [facility] (Rec: 06/09/21 11:53 [facility] [id number]) Out-Patient Physical Therapy Visit Information Visit Information Visit Type Treatment Note Visit Start Time 11:20 Visit Stop Time 12:00 Total Visit Minutes 40 Visit Number 4 PT-OP-B Current Condition Start: 04/23/21 15:22 Freq: Status: Active Protocol: Document 04/23/21 15:20 [facility] (Rec: 04/23/21 15:38 [facility] [id number]) Current Condition History of Current Condition Onset Date 15 years Current Complaints dysparunea, with pap smears she has pain and the plastic spectum breaks, sh History of Current Condition she had a cyst and this was removed right at the beginning of cov. Symptoms have been going on x 15 years. She had a rough with her daughter. SHe was 5 months with her daughter before she knew she was pregnanct. SHe had had 5 miscarrieges prior to her daughter being born. Her baby was 5 6 oz with a emercency c section. SHe had preclampsia with her daughter and then ecoli afterwards and went home with a IV. SHe will be 19 on the second. She doesnthave any sensation in her pelvic floor with intercourse. SHe is sore afterwards. She has to use lube all the time. She did get estrogen cream today so will start using it. Treatment Goals Patient/Caregiver Goals decrease pelvic pain and for pt to be able to be intimate with her without pain PT-OP-C Subjective Start: 04/23/21 15:22 Freq: Status: Active Protocol: Document 06/09/21 11:22 [facility] (Rec: 06/09/21 11:53 [facility] [id number]) OP-PT Subjective Patient Comments Patient Comments pt reports he is doing great and she hasn't been experiencing any pain. She did just menstruate but didn't have any pelvic floor symptoms. No leaking PT-OP-F Manual Assessment Start: 04/28/21 14:17 Freq: Status: Active Protocol: Document 04/23/21 15:15 [facility] (Rec: 04/28/21 14:18 [facility] [id number]) Manual Assessments Soft Tissue Assessment Soft Tissue Mobility Assessment tightness in the piriformis muscle bilaterally at the sacral attachments, tender all along the left TIMO of the sacrum, tender at the coccyx Joint Mobility Assessment Joint Mobility Assessment hypomobility T-spine, exaggerated lumbar lordosis PT-OP-I Pelvic Floor Start: 04/23/21 15:22 Freq: Status: Active Protocol: Document 04/23/21 15:15 [facility] (Rec: 04/28/21 14:16 [facility] [id number]) Pelvic Floor Assessment Urine Pelvic Floor Surgery No Leakage Size Small Other Leakage Causes leakage only with strong cough or sneeze Pelvic Clock Pelvic Clock 3-6 Hypertonic,Tenderness, Tightness Pelvic Clock 6-9 Guarding Pelvic Clock 9-12 Guarding Pelvic Clock Other left side of the levator ani is guarded on tight with pain Contraction Ability Voluntary Contraction Moderate Voluntary Relaxation Moderate Manual Muscle Testing Left 4 Manual Muscle Testing Right 4 Manual Muscle Testing Anterior 4 Manual Muscle Testing Posterior 4 PT-OP-Q Treatments Start: 04/23/21 15:22 Freq: Status: Active Protocol: Document 06/09/21 11:22 [facility] (Rec: 06/09/21 11:53 [facility] [id number]) Therapeutic Exercises Supine Exercises hip roll outs with theraband Reps/Minutes 3 x 10 level 2 quick contractions Reps/Minutes x 12 reps Comments pt did well, no c/o pain templates for eccentric control and coordination Reps/Minutes x 5 min pelvic floor long holds contract/relax Reps/Minutes x 10 reps Comments average 18 uv max 31.5 with rest 3.0 uv piriformis stretch Supine Exercise Name reviewed for HEP Reps/Minutes hold 1-2 minutes supine modified squat stretch Supine Exercise Name reviewed for HEP Neuro Re-Education Treatment Other Activities EMG biofeedback for relax ed awareness of the pelvic floor Comments today the average rest is a 4 uv pt was able to rest fully to baseline with her legs extended in supine PT-OP-T Assessment and Plan Start: 04/23/21 15:22 Freq: Status: Active Protocol: Document 06/09/21 11:22 [facility] (Rec: 06/09/21 11:53 [facility] [id number]) Physical Therapy Assessment Goals 3 Impairment dysparunia that limits ability to be intimate with her [employer] Database [employer] Goal (LTG) Lexy has been educated in techniqes to help relax the levator ani and she is able to resume intercourse without pain LTG Duration 8 weekis 2 Impairment levator ani muscle spasm and guarding left greater than right, pain on the left side with palpation [employer] Database Architect Goal (LTG) With PT techniques and stretches Lexy is able to fully relax her levator ani LTG Duration 8 weeks 1 Impairment elevated resting tone of the levator ani Short Term Goal (STG) PT is able to relax her pelvic floor from 15 uv on EMG biofeedback to 5 uv or lower STG Duration 5 weeks Nursing Home Goal (LTG) Lexy is able to relax her pelvic floor to baseline with EMG biofeedback LTG Duration 8 weeks Assessment Summary Assessment pt is doing well with pelvic floor recruitement as well as relaxation. No pain with ther ex. Continue x 1 visit Physical Therapy Plan Frequency and Duration Frequency of Treatment 1x/Week Duration of Treatment 12 Plan of Care Start Date 04/23/21 Plan of Care End Date 07/21/21 Next Visit Focus/Plan Next Note Type Treatment Note Next Visit Plan begin progressing pelvic floor endurance training, continuing to keep working on relaxed awareness of the pelvic floor between contractions
== END 2021-08-14 10:13 ==
LOC: PHYS 11:15
PROVIDERS: Family Provider Family Medicine; PCP Family Medicine; Referring Provider Obstetrics & Gynecology; Visit Provider Obstetrics & Gynecology
DX: M62.89 Other specified disorders of muscle (principal)
CPT/HCPCS: 97110; 97112; 97140; 97161; 97535

== ENCOUNTER → 2022-03-13 12:12 | Outpatient (CLI) | payer OTHER, SELFPAY ==
--- NOTE | 2022-03-13 12:13 | DI.MG.S_ITS ---
BILATERAL DIGITAL SCREENING MAMMOGRAM 3D/2D WITH CAD: 03/13/2022 CLINICAL: Routine screening. Comparison is made to exams dated: 02/26/2021 mammogram - [facility], 12/08/2015 mammogram, and 07/21/2015 mammogram - [facility]. Both breasts are almost entirely fatty (category a/<25% glandular tissue). Current study was also evaluated with a Computer Aided Detection (CAD) system. There is a biopsy clip in the right breast. No significant masses, calcifications, or other findings are seen in either breast. There has been no significant interval change. IMPRESSION: NEGATIVE There is no mammographic evidence of malignancy. A 1 year screening mammogram is recommended. Based on the Tyrer Cuzick model (a risk assessment model) the patient's lifetime risk is 6.3% and her 10 year risk is 1.2%. According to the ACR, ACS, and NCCN guidelines, an annual breast MRI exam along with mammogram is recommended if the patient's lifetime risk is 20% or greater. This exam was interpreted at Station ID: [id number]. NOTE: For mammograms, a report in lay terms will be sent to the patient. Approximately 15% of breast malignancies will not be visualized mammographically. In the management of a palpable breast mass, a negative mammogram must not discourage biopsy of a clinically suspicious lesion. Electronically Signed By: Bobby [email or web address]:03/15/2022 09:20:30 copy to: Erasmo Jenkins letter sent: Normal Exam ACR BI-RADS Category 1: Negative [id number]
== END ==
PROVIDERS: Family Provider Family Medicine; PCP Family Medicine; Referring Provider Family Medicine; Visit Provider Family Medicine
DX: Z12.31 Encounter for screening mammogram for malignant neoplasm of breast (principal)
CPT/HCPCS: 77063; 77067

== ENCOUNTER 2022-08-07 13:32 | Emergency (ER) | payer OTHER, SELFPAY ==
[2022-08-07] VITALS (15 sets, daily range): BP systolic 142–188; BP diastolic 75–99; PULSE 57–84; RESP 18–28; TEMP 35.9; O2SAT 93–100; BMI 32.5
[2022-08-07 13:54] LABS: Bilirubin Urine UA 1+ (NEGATIVE); Glucose Urine UA NEGATIVE (Negative); Ketones Urine UA NEGATIVE (NEGATIVE); Leukocyte Esterase Urine UA 1+ (NEGATIVE); Nitrite Urine UA NEGATIVE (Negative); Occult Blood Urine UA 3+ (Negative); Protein Urine UA 1+ (Negative); Specific Gravity Urine UA >=1.030 (1.000-1.035)
[2022-08-07 13:55] LABS: Add Manual Diff / Slide Review NO; Basophils Absolute Auto 100 /uL (0-100); Basophils Percent Auto 0.6 % (0-2); Eosinophils Absolute Auto 200 /uL (0-450); Eosinophils Percent Auto 1.4 % (2-4); Hematocrit 39.7 % (36-46); Hemoglobin 13.8 g/dL (12.0-16.0); Lymphocytes Absolute Auto 4600 /uL (1100-4500); Lymphocytes Percent Auto 42.1 % (25-40); Mean Corpuscular HGB Conc 34.7 % (30-36); Mean Corpuscular Hemoglobin 31.2 PG (26-34); Monocytes Absolute Auto 600 /uL (0-900); Monocytes Percent Auto 5.6 % (3-14); Neutrophils Absolute Auto 5600 /uL (1500-7000); Neutrophils Percent Auto 50.3 % (50-75); Platelet Count 299 X10^3/uL (150-400); Red Blood Cell Count 4.41 X10^6/uL (4.0-5.2); Red Cell Distribution Width 12.5 % (11.6-14.8)
[2022-08-07 13:58] LABS: Appearance Urine UA Slightly Cloudy; Color Urine UA Dark Yellow
[2022-08-07 14:01] LABS: Alanine Aminotransferase 59 IU/L (<35); Albumin 4.5 g/dL (3.5-5.0); Albumin Globulin Ratio 1.3 (1.0-2.8); Alkaline Phosphatase 90 U/L (38-126); Aspartate Aminotransferase 44 IU/L (14-36); BUN Creatinine Ratio 13.6 (6-22); Bilirubin Total 1.2 mg/dL (0.2-1.3); Blood Urea Nitrogen 11 mg/dL (7-17); Calcium 9.2 mg/dL (8.4-10.2); Carbon Dioxide 22 mmol/L (22-32); Chloride 104 mmol/L (98-107); Estimated Glomerular Filt Rate > 60 mL/min (>60); Globulin 3.6 g/dL (1.7-4.1); Glucose 140 mg/dL (70-100); HEMOLYSIS 19 (0-50); Lipase 79 U/L (23-300); Potassium 3.3 mmol/L (3.4-5.1); Sodium 137 mmol/L (137-145); Total Protein 8.1 g/dL (6.3-8.2)
[2022-08-07 14:02] LABS: Ictotest Urine Negative (Negative); RBC Urine 10-30/HPF (0-5/HPF); WBC Urine 5-10/HPF (0-5/HPF)
[2022-08-07 14:03] LABS: Amorphous Sediment Urine 1+; Bacteria Urine Occasional (0-1); Culture Indicated Urine Specimen Cultured; Mucus Urine 2+ (Negative); Squamous Epithelial Cell Urine 1-5 /HPF (0-5/HPF)
--- NOTE | 2022-08-07 14:08 | ED_ITS ---
HPI - Female Genitourinary <Roxana Olivera, DO - Last Filed: 08/13/22 19:43> General Chief complaint: Back Pain/Injury Stated complaint: possible kidney stone Time Seen by Provider: 08/07/22 14:07 Source: patient, family, RN notes reviewed and old records reviewed Mode of arrival: Wheelchair Limitations: no limitations History of Present Illness HPI Narrative: This is a 47-year-old female complaint of fibromyalgia and prior kidney stones, patient has had lithotripsy no prior ureteral stents. Patient states she is had left-sided abdominal and flank pain that started with vomiting last night and has persisted and got significantly worse throughout the day. Patient had another episode of vomiting this morning. She is had hematuria, and states decreased amount of urine output. Denies active dysuria, or frequency. She has not had any fevers or chills. Has had bowel movements with some diarrhea. No black or bloody stools. No chest pain or shortness of breath. Patient states pain is all in the left side. Feels consistent with prior kidney stones. Patient has had prior cholecystectomy as well as appendectomy. History of allergies to medications and family states that fentanyl and morphine make her hallucinate and ?climb the sharp?. Patient denies tobacco, alcohol or illicit. States she was told that she still had some kidney stones present after urology visit. Patient has seen Jonny Shook for urology with [facility]. Related Data Home Medications Medication Instructions Recorded Confirmed atenolol 25 mg tablet 25 mg PO DAILY 03/13/21 07/21/21 fluoxetine 20 mg tablet 20 mg PO DAILY 03/13/21 07/21/21 gabapentin 300 mg capsule 300 mg PO DAILY 03/13/21 07/21/21 ibuprofen 600 mg tablet 600 mg PO TID 03/13/21 07/21/21 levothyroxine 25 mcg capsule 25 mcg PO DAILY 03/13/21 07/21/21 loratadine 10 mg tablet (Claritin) 10 mg PO DAILY 03/13/21 07/21/21 Previous Rx's Medication Instructions Recorded hydrocodone 5 mg-acetaminophen 325 1 tab PO Q6H PRN pain #10 tabs 04/13/20 mg tablet conjugated estrogens 0.625 mg/gram 0.625 mg vaginal DAILY vaginal 03/17/21 vaginal cream atrophy #30 grams cephalexin 500 mg capsule 500 mg PO BID 10 days #20 caps 08/07/22 oxycodone 5 mg tablet 5 mg PO Q6H PRN pain #14 tabs 08/07/22 tamsulosin 0.4 mg capsule (Flomax) 0.4 mg PO DAILY #7 caps 08/07/22 Allergies Allergy/AdvReac Type Severity Reaction Status Date / Time fentanyl [FENTANYL] Allergy Severe HALLUCINATIONS, Verified 08/07/22 13:45 EMOTIONAL LABILITY Sulfa (Sulfonamide Allergy Unknown HIVES, Verified 08/07/22 13:45 Antibiotics) DIFFICULTY [SULFA (SULFONAMIDE BREATHING ANTIBIOTICS)] sulfamethoxazole Allergy Unknown Verified 08/07/22 13:45 [From SEPTRA] trimethoprim [From NOVRA] Allergy Unknown Verified 08/07/22 13:45 IV DYE CONTRAST Allergy Unknown HIVES Uncoded 08/07/22 13:45 Review of Systems <Roxana Olivera DO - Last Filed: 08/13/22 19:43> Review of Systems ROS Unobtainable: All systems reviewed & are unremarkable except as noted in HPI and below Patient History <Roxana Olivera DO - Last Filed: 08/13/22 19:43> Medical History Allergies Ankle pain Anxiety (~2001) Asthma Bipolar disorder, unspecified Chronic back pain Depression (~2001) Far-sightedness Fibromyalgia Hoarding behavior Hyperthyroidism (~2016) Interpersonal problem Kidney stones (~2019) Learning disabilities Migraines Shoulder pain Stress Surgical History Anesthesia History of section (~2002) Status post appendectomy (~2018) Status post breast reduction (~2009) Status post cholecystectomy Family History Father Cancer History of heart disease Mother Diabetes mellitus History of heart disease Mental health problem Hemothorax Pleural effusion Hypovolemia Grandfather History of heart disease Grandmother History of heart disease Grandfather History of heart disease Grandmother History of heart disease Substance Use Type: marijuana Exam <DO Chandni Damian Last Filed: 08/13/22 19:43> Narrative Exam Narrative: GENERAL: Alert and oriented x three, female in moderate distress. Patient appears quite uncomfortable and rolling around on the bed. HEENT: Head normocephalic, atraumatic, EOMI, pupils reactive, face symmetric, moist mucous membranes NECK: Supple, full range of motion CARDIOVASCULAR: Regular rate and rhythm without murmurs, rubs or gallops. RESPIRATORY: Breath sounds equal bilaterally, no wheezes rales or rhonchi. ABDOMEN: Soft, nontender. Non-distended. Normoactive bowel sounds all 4 quadrants. No guarding or rebound, rigidity, no mass : No CVA tenderness EXTREMITIES: Normal range of motion, no clubbing or edema. Neurovascularly intact NEUROLOGICAL: Cranial nerves II through XII grossly intact. Moving all extremities SKIN: Warm, dry, no petechiae, no rashes or lesions. Initial Vital Signs Initial Vital Signs: Vital Signs Pulse Rate 72 08/07/22 13:35 Blood Pressure 188/97 H 08/07/22 13:35 Pulse Oximetry 94 08/07/22 13:35 <Felisa Mckeon DO - Last Filed: 08/08/22 03:07> Initial Vital Signs Initial Vital Signs: Vital Signs Pulse Rate 72 08/07/22 13:35 Blood Pressure 188/97 H 08/07/22 13:35 Pulse Oximetry 94 08/07/22 13:35 Course <Roxana Olivera DO - Last Filed: 08/13/22 19:43> Orders Ordered: Discontinued Medications Hydromorphone HCl (Hydromorphone 1 Mg Inj) 1 mg IV NOW ONE Stop: 08/07/22 16:30 Last Admin: 08/07/22 16:43 Dose: 1 mg Documented By: SB Hydromorphone HCl (Hydromorphone 1 Mg Inj) 1 mg IV NOW ONE Stop: 08/07/22 17:48 Last Admin: 08/07/22 17:56 Dose: 1 mg Documented By: SB Ceftriaxone Sodium 1,000 mg/ (Sodium Chloride) 100 mls @ 200 mls/hr IV NOW ONE Stop: 08/07/22 16:36 Last Infusion: 08/07/22 17:30 Dose: 0 mls/hr Documented By: Admin: 08/07/22 16:43 Dose: 200 mls/hr Documented By: SB Sodium Chloride (Normal Saline 0.9%) 1,000 mls @ 1,000 mls/hr IV BOLUS ONE Stop: 08/07/22 17:37 Last Infusion: 08/07/22 18:50 Dose: 0 mls/hr Documented By: Admin: 08/07/22 16:44 Dose: 1,000 mls/hr Documented By: RONAL Ketorolac Tromethamine (Ketorolac 30 Mg/Ml Vial) 15 mg IV NOW ONE Stop: 08/07/22 14:24 Last Admin: 08/07/22 14:39 Dose: 15 mg Documented By: ALON Lorazepam (Lorazepam 2 Mg/Ml Inj) 0.5 mg IV NOW ONE Stop: 08/07/22 19:00 Last Admin: 08/07/22 19:08 Dose: 0.5 mg Documented By: RONAL Ondansetron HCl (Ondansetron 4 Mg/2 Ml Inj) 4 mg IV NOW PRN PRN Reason: Nausea And Vomiting Oxycodone/Acetaminophen (Oxycodone/Apap 5/325 Prepack) 1 bottle MISC SEEINSTR ONE Stop: 08/07/22 18:02 Last Admin: 08/07/22 18:17 Dose: 1 bottle Documented By: RONAL Vital Signs Vital signs: Vital Signs - 8 hr 08/07/22 19:30 08/07/22 19:30 08/07/22 20:00 Pulse Rate 79 82 Respiratory Rate 18 Blood Pressure 162/77 H 155/77 H Pulse Oximetry 93 97 Oxygen Delivery Method Room Air 08/07/22 20:00 Pulse Rate 65 Respiratory Rate Blood Pressure Pulse Oximetry 94 Oxygen Delivery Method <Felisa Mckeon, - Last Filed: 08/08/22 03:07> Orders Ordered: Discontinued Medications Hydromorphone HCl (Hydromorphone 1 Mg Inj) 1 mg IV NOW ONE Stop: 08/07/22 16:30 Last Admin: 08/07/22 16:43 Dose: 1 mg Documented By: RONAL Hydromorphone HCl (Hydromorphone 1 Mg Inj) 1 mg IV NOW ONE Stop: 08/07/22 17:48 Last Admin: 08/07/22 17:56 Dose: 1 mg Documented By: RONAL Ceftriaxone Sodium 1,000 mg/ (Sodium Chloride) 100 mls @ 200 mls/hr IV NOW ONE Stop: 08/07/22 16:36 Last Infusion: 08/07/22 17:30 Dose: 0 mls/hr Documented By: Admin: 08/07/22 16:43 Dose: 200 mls/hr Documented By: RONAL Sodium Chloride (Normal Saline 0.9%) 1,000 mls @ 1,000 mls/hr IV BOLUS ONE Stop: 08/07/22 17:37 Last Infusion: 08/07/22 18:50 Dose: 0 mls/hr Documented By: Admin: 08/07/22 16:44 Dose: 1,000 mls/hr Documented By: RONAL Ketorolac Tromethamine (Ketorolac 30 Mg/Ml Vial) 15 mg IV NOW ONE Stop: 08/07/22 14:24 Last Admin: 08/07/22 14:39 Dose: 15 mg Documented By: ALON Lorazepam (Lorazepam 2 Mg/Ml Inj) 0.5 mg IV NOW ONE Stop: 08/07/22 19:00 Last Admin: 08/07/22 19:08 Dose: 0.5 mg Documented By: RONAL Ondansetron HCl (Ondansetron 4 Mg/2 Ml Inj) 4 mg IV NOW PRN PRN Reason: Nausea And Vomiting Oxycodone/Acetaminophen (Oxycodone/Apap 5/325 Prepack) 1 bottle MISC SEEINSTR ONE Stop: 08/07/22 18:02 Last Admin: 08/07/22 18:17 Dose: 1 bottle Documented By: RONAL Vital Signs Vital signs: Vital Signs - 8 hr 08/07/22 19:30 08/07/22 19:30 08/07/22 20:00 Pulse Rate 79 82 Respiratory Rate 18 Blood Pressure 162/77 H 155/77 H Pulse Oximetry 93 97 Oxygen Delivery Method Room Air 08/07/22 20:00 Pulse Rate 65 Respiratory Rate Blood Pressure Pulse Oximetry 94 Oxygen Delivery Method MDM - Female Genitourinary <Roxana Olivrea DO - Last Filed: 08/13/22 19:43> Lab Data 08/07/22 13:36 08/07/22 13:36 Labs: Lab Results 08/07/22 08/07/22 08/07/22 Range/Units 13:36 13:36 13:41 WBC 11.0 (4.5-11.0) X10^3/uL RBC 4.41 (4.0-5.2) X10^6/uL Hgb 13.8 (12.0-16.0) g/dL Hct 39.7 (36-46) % MCV 90.0 (80-100) fL MCH 31.2 (26-34) PG MCHC 34.7 (30-36) % RDW 12.5 (11.6-14.8) % Plt Count 299 (150-400) X10^3/uL Neut % (Auto) 50.3 (50-75) % Lymph % (Auto) 42.1 H (25-40) % [place] % (Auto) 5.6 (3-14) % Eos % (Auto) 1.4 L (2-4) % Baso % (Auto) 0.6 (0-2) % Neut # (Auto) 5600 (9164-7362) /uL Lymph # (Auto) 4600 H (5396-5310) /uL [place] # (Auto) 600 (0-900) /uL Eos # (Auto) 200 (0-450) /uL Baso # (Auto) 100 (0-100) /uL Sodium 137 (137-145) mmol/L Potassium 3.3 L (3.4-5.1) mmol/L Chloride 104 (98-107) mmol/L Carbon Dioxide 22 (22-32) mmol/L BUN 11 (7-17) mg/dL Creatinine 0.81 (0.52-1.04) mg/dL Estimated GFR > 60 (>60) mL/min BUN/Creatinine Ratio 13.6 (6-22) Glucose 140 H (70-100) mg/dL Calcium 9.2 (8.4-10.2) mg/dL Total Bilirubin 1.2 (0.2-1.3) mg/dL AST 44 H (14-36) IU/L ALT 59 H (<35) IU/L Alkaline Phosphatase 90 (38-126) U/L Total Protein 8.1 (6.3-8.2) g/dL Albumin 4.5 (3.5-5.0) g/dL Globulin 3.6 (1.7-4.1) g/dL Albumin/Globulin Ratio 1.3 (1.0-2.8) Lipase 79 (23-300) U/L Urine Color Dark yellow Urine Appearance Slightly cloudy Urine pH 6.0 (4.5-8.0) Ur Specific [place] >=1.030 H (1.000-1.035) Urine Protein 1+ H (Negative) Urine Glucose (UA) Negative (Negative) g/dL Urine Ketones Negative (NEGATIVE) Urine Occult Blood 3+ H (Negative) Urine Nitrate Negative (Negative) Urine Bilirubin 1+ H (NEGATIVE) Ur Bilirubin Confirm Negative (Negative) Urine Urobilinogen 1.0 (0.2) E.U./dL Ur Leukocyte Esterase 1+ H (NEGATIVE) Urine RBC 10-30/hpf H (0-5/HPF) Urine WBC 5-10/hpf H (0-5/HPF) Ur Squamous Epith Cells 1-5 /hpf (0-5/HPF) Amorphous Sediment 1+ Urine Bacteria Occasional (0-1) (None) Urine Mucus 2+ H (Negative) Ur Culture Indicated? Specimen cultured Imaging Data CT scan - abdomen/pelvis: Radiologist's Impression: Close Abdomen/Pelvis CT (Signed) Lakhwinder Kerr - 08/07/22 [place] [address] CT Scan Report Signed Patient: Lexy Mccarthy MR#: [id number] : 1975 Acct:[id number] Age/Sex: 47 / F Date of Service: 08/07/22 Loc: ED Accession Number: [id number] ?? Procedure: CT kidney ureter bladder (KUB) Ordering Provider: Roxana Olivera D.O. PROCEDURE:? CT KIDNEY URETER BLADDER (KUB) ? INDICATIONS:? left flank/abd pain ? TECHNIQUE:? Axial sections were acquired from the lung bases to the pubic symphysis.? Coronal and sagittal reformats were performed.? For radiation dose reduction, the following was used: ?automated exposure control, adjustment of mA and/or kV according to patient size.? ? COMPARISON:? [facility], CT, CT KIDNEY URETER BLADDER (KUB), 04/13/2020, 17:24. ? FINDINGS:? Image quality:? This examination is limited by involuntary motion artifact.? ? Lung bases:? Unremarkable.? ? A small hiatal hernia is incidentally noted.? Heart:? No significant findings. ? URINARY: Right Kidney: ? No stones or hydronephrosis.? Right Ureter:? No hydroureter.? ? Left Kidney:? There is moderate left-sided hydronephrosis.? Minimal perinephric fat stranding can be seen.? No nonobstructing stones are seen. Left Ureter:? There is moderate hydroureter.? At the vesicoureteral junction, there is a 4 mm obstructing stone seen, as on series 2 image 85 and on series 4, image 33. ? Bladder:? Normal wall thickness. No stones. ? ? ? ABDOMEN: Liver:? Unremarkable.? ? Gallbladder:? Removed.? ? Biliary ducts:? Unremarkable.? ? Pancreas:? Unremarkable.? ? Spleen:? Unremarkable.? ? Adrenal Glands:? Unremarkable.? ? ? Stomach and Bowel:? Stomach, small bowel loops, and colon are unremarkable.? Prior appendectomy change can be seen. Peritoneum:? No abnormal intraperitoneal fluid.? No free air.? ? Ventral Wall: ? No hernia.? Abdominal Nodes:? No enlarged retroperitoneal or mesenteric lymph nodes.? Vessels:? Aorta and inferior vena cava are normal in size.? ? PELVIS: Pelvic Organs: The uterus appears normal for age.? No adnexal masses are seen.? Pelvic Nodes: Unremarkable. Miscellaneous: No inguinal hernias are seen. ? ? ? Bones:? Unremarkable. ? IMPRESSION:? ? 4 mm obstructing stone at the left ureterovesicular junction, with associated left-sided hydronephrosis and hydroureter. ? No nonobstructing stones can be seen on either side. ? ? ? Additional findings:? Small hiatal hernia Cholecystectomy Appendectomy ? Dictated by: Lakhwinder Kerr M.D. on 08/07/2022 at 14:38 ? ? Approved by: Lakhwinder Kerr M.D. on 08/07/2022 at 14:40?? MDM Narrative Medical decision making narrative: This is a 47-year-old female who presents with concern for kidney stones and is quite uncomfortable. Patient had vomiting overnight with worsening pain throughout the evening. She has had kidney stones before. Labs show renal function being normal at 0.81 actually improved from March of 2020 and was 0.9 in 2017. Potassium 3.3 otherwise normal electrolytes glucose is 140, AST ALT are 45 and 59 but normal bilirubin and lipase. White count is 11, patient has slightly low lymphocytes no leftward shift. Normal hemoglobin crit and platelets. Urine shows trace protein, 3+ blood, 1+ bili, 1+ leuks, negative nitrites, 10-30 RBCs 5-10 wbc's 1-5 squamous epithelial with 0-1 bacteria, urine was sent for culture. KUB shows moderate left-sided hydro with minimal perinephric fat stranding, there is moderate hydroureter and at the vesicoureteral junction there is a 4 mm obstructing stone. Right kidney does not show any hydro or stones. Other intra-abdominal organs appear normal. Patient received Zofran and Toradol: On recheck patient states she had some improvement but feels like it is trying to move some more. She is quite uncomfortable she is sitting on a bedside commode. We will do additional dose of pain medication. Reviewed her findings from today patient's family states that is a little bit larger than stone she is passed in the past. Urine shows possible infection but does have squamous epithelials will give a dose of Rocephin. Fluids and re-evaluate patient is much improved after a dose of Dilaudid. She feels significantly better. <Felisa Mckeon, - Last Filed: 08/08/22 03:07> Lab Data Labs: Lab Results 08/07/22 08/07/22 08/07/22 Range/Units 13:36 13:36 13:41 WBC 11.0 (4.5-11.0) X10^3/uL RBC 4.41 (4.0-5.2) X10^6/uL Hgb 13.8 (12.0-16.0) g/dL Hct 39.7 (36-46) % MCV 90.0 (80-100) fL MCH 31.2 (26-34) PG MCHC 34.7 (30-36) % RDW 12.5 (11.6-14.8) % Plt Count 299 (150-400) X10^3/uL Neut % (Auto) 50.3 (50-75) % Lymph % (Auto) 42.1 H (25-40) % [place] % (Auto) 5.6 (3-14) % Eos % (Auto) 1.4 L (2-4) % Baso % (Auto) 0.6 (0-2) % Neut # (Auto) 5600 (9384-8441) /uL Lymph # (Auto) 4600 H (1801-0930) /uL [place] # (Auto) 600 (0-900) /uL Eos # (Auto) 200 (0-450) /uL Baso # (Auto) 100 (0-100) /uL Sodium 137 (137-145) mmol/L Potassium 3.3 L (3.4-5.1) mmol/L Chloride 104 (98-107) mmol/L Carbon Dioxide 22 (22-32) mmol/L BUN 11 (7-17) mg/dL Creatinine 0.81 (0.52-1.04) mg/dL Estimated GFR > 60 (>60) mL/min BUN/Creatinine Ratio 13.6 (6-22) Glucose 140 H (70-100) mg/dL Calcium 9.2 (8.4-10.2) mg/dL Total Bilirubin 1.2 (0.2-1.3) mg/dL AST 44 H (14-36) IU/L ALT 59 H (<35) IU/L Alkaline Phosphatase 90 (38-126) U/L Total Protein 8.1 (6.3-8.2) g/dL Albumin 4.5 (3.5-5.0) g/dL Globulin 3.6 (1.7-4.1) g/dL Albumin/Globulin Ratio 1.3 (1.0-2.8) Lipase 79 (23-300) U/L Urine Color Dark yellow Urine Appearance Slightly cloudy Urine pH 6.0 (4.5-8.0) Ur Specific [place] >=1.030 H (1.000-1.035) Urine Protein 1+ H (Negative) Urine Glucose (UA) Negative (Negative) g/dL Urine Ketones Negative (NEGATIVE) Urine Occult Blood 3+ H (Negative) Urine Nitrate Negative (Negative) Urine Bilirubin 1+ H (NEGATIVE) Ur Bilirubin Confirm Negative (Negative) Urine Urobilinogen 1.0 (0.2) E.U./dL Ur Leukocyte Esterase 1+ H (NEGATIVE) Urine RBC 10-30/hpf H (0-5/HPF) Urine WBC 5-10/hpf H (0-5/HPF) Ur Squamous Epith Cells 1-5 /hpf (0-5/HPF) Amorphous Sediment 1+ Urine Bacteria Occasional (0-1) (None) Urine Mucus 2+ H (Negative) Ur Culture Indicated? Specimen cultured MDM Narrative Medical decision making narrative: This is a 47-year-old female who presents with concern for kidney stones and is quite uncomfortable. Patient had vomiting overnight with worsening pain throughout the evening. She has had kidney stones before. Labs show renal function being normal at 0.81 actually improved from March of 2020 and was 0.9 in 2017. Potassium 3.3 otherwise normal electrolytes glucose is 140, AST ALT are 45 and 59 but normal bilirubin and lipase. White count is 11, patient has slightly low lymphocytes no leftward shift. Normal hemoglobin crit and platelets. Urine shows trace protein, 3+ blood, 1+ bili, 1+ leuks, negative nitrites, 10-30 RBCs 5-10 wbc's 1-5 squamous epithelial with 0-1 bacteria, urine was sent for culture. KUB shows moderate left-sided hydro with minimal perinephric fat stranding, there is moderate hydroureter and at the vesicoureteral junction there is a 4 mm obstructing stone. Right kidney does not show any hydro or stones. Other intra-abdominal organs appear normal. Patient received Zofran and Toradol: On recheck patient states she had some improvement but feels like it is trying to move some more. She is quite uncomfortable she is sitting on a bedside commode. We will do additional dose of pain medication. Reviewed her findings from today patient's family states that is a little bit larger than stone she is passed in the past. Urine shows possible infection but does have squamous epithelials will give a dose of Rocephin. Fluids and re-evaluate patient is much improved after a dose of Di laudid. She feels significantly better. Dr. Mckeon-patient seen evaluated by myself. Quite a bit of pain Dilaudid initially helped however pain is increasing again. She is given half a mg of Ativan which actually seemed to have helped her a lot. At this time outpatient follow-up Discharge Plan Departure Patient Disposition: Home Clinical Impression: Kidney stone on left side Instructions: DI for Kidney Stones Activity Restrictions/Additional Instructions: Please follow-up with your urologist for recheck. Please call for an appointment. You have a 4mm stone at the left vesicoureteral junction (near the bladder). Take Flomax once daily until gone. Your urine shows questionable infection today but with your kidney stone I would treat with an antibiotic. Please take this until gone. You can take Tylenol up to a 1000 mg every 6 hours and/or ibuprofen up to 600 mg every 6 hours. If in adequate for pain you can take oxycodone 1-2 tablets every 6 hours as needed. This medication can make you sleepy do not drive, perform hazardous activities or make any major decisions while taking it. This medication will make you constipated please take a stool softener once to twice daily until stools are soft and regular. Prescription sent to Please return for fevers, rapidly worsening abdominal back or flank pain, persistent vomiting, lightheadedness or passing out or other new or concerning changes. Prescriptions: New tamsulosin [Flomax] 0.4 mg capsule 0.4 mg PO DAILY Qty: 7 0RF oxycodone 5 mg tablet 5 mg PO Q6H PRN (Reason: pain) Qty: 14 0RF cephalexin 500 mg capsule 500 mg PO BID 10 Days Qty: 20 0RF No Action conjugated estrogens 0.625 mg/gram cream 0.625 mg vaginal DAILY Qty: 30 3RF Rx Instructions: Use daily for 14 days, then 2x weekly. gabapentin 300 mg capsule 300 mg PO DAILY levothyroxine 25 mcg capsule 25 mcg PO DAILY loratadine [Claritin] 10 mg tablet 10 mg PO DAILY atenolol 25 mg tablet 25 mg PO DAILY fluoxetine 20 mg tablet 20 mg PO DAILY ibuprofen 600 mg tablet 600 mg PO TID hydrocodone-acetaminophen 5-325 mg tablet 1 tab PO Q6H PRN (Reason: pain) Qty: 10 0RF Referrals: Jonny Shook MD [Non-Staff] - Nafisa Jeffers DO [Primary Care Provider] - Stand Alone Forms: Patient Portal/API
[2022-08-07] MEDS: KETOROLAC 30 MG/ML VIAL 15 MG IV (14:39)
--- NOTE | 2022-08-07 15:10 | DI.CT.S_ITS ---
PROCEDURE: CT KIDNEY URETER BLADDER (KUB) INDICATIONS: left flank/abd pain TECHNIQUE: Axial sections were acquired from the lung bases to the pubic symphysis. Coronal and sagittal reformats were performed. For radiation dose reduction, the following was used: automated exposure control, adjustment of mA and/or kV according to patient size. COMPARISON: [facility], CT, CT KIDNEY URETER BLADDER (KUB), 04/13/2020, 17:24. FINDINGS: Image quality: This examination is limited by involuntary motion artifact. Lung bases: Unremarkable. A small hiatal hernia is incidentally noted. Heart: No significant findings. URINARY: Right Kidney: No stones or hydronephrosis. Right Ureter: No hydroureter. Left Kidney: There is moderate left-sided hydronephrosis. Minimal perinephric fat stranding can be seen. No nonobstructing stones are seen. Left Ureter: There is moderate hydroureter. At the vesicoureteral junction, there is a 4 mm obstructing stone seen, as on series 2 image 85 and on series 4, image 33. Bladder: Normal wall thickness. No stones. ABDOMEN: Liver: Unremarkable. Gallbladder: Removed. Biliary ducts: Unremarkable. Pancreas: Unremarkable. Spleen: Unremarkable. Adrenal Glands: Unremarkable. Stomach and Bowel: Stomach, small bowel loops, and colon are unremarkable. Prior appendectomy change can be seen. Peritoneum: No abnormal intraperitoneal fluid. No free air. Ventral Wall: No hernia. Abdominal Nodes: No enlarged retroperitoneal or mesenteric lymph nodes. Vessels: Aorta and inferior vena cava are normal in size. PELVIS: Pelvic Organs: The uterus appears normal for age. No adnexal masses are seen. Pelvic Nodes: Unremarkable. Miscellaneous: No inguinal hernias are seen. Bones: Unremarkable. IMPRESSION: 4 mm obstructing stone at the left ureterovesicular junction, with associated left-sided hydronephrosis and hydroureter. No nonobstructing stones can be seen on either side. Additional findings: Small hiatal hernia Cholecystectomy Appendectomy Dictated by: Lakhwinder Kerr M.D. on 08/07/2022 at 14:38 Approved by: Lakhwinder Kerr M.D. on 08/07/2022 at 14:40
--- NOTE | 2022-08-07 15:41 | PC.NURSE ---
Pt with known kidney stone which she reports is in the L kidney. Arrives in writhing pain and unable to sit still. helped up to commode with minimal assist and was able to void small amount into hat with visible blood in urine. states having pressure and urgency and unable to void completely. Assisted back to bed. torodol given and pt appears more comfortable. taken to and from CT without issue.
[2022-08-07] MEDS: cefTRIAXone 1,000 MG in SODIUM CHLORIDE 0.9% 100 ML 200 MG IV (16:43)
[2022-08-07] MEDS: HYDROMORPHONE 1 MG INJ IV ×2 (16:43→17:56)
[2022-08-07] MEDS: SODIUM CHLORIDE 0.9% 1,000 ML 1000 ML IV (16:44)
[2022-08-07] MEDS: OXYCODONE/APAP 5/325 PREPACK 1 BOTTLE MISC (18:17)
[2022-08-07] MEDS: LORazepam 2 MG/ML INJ 0.5 MG IV (19:08)
== END 2022-08-07 20:13 | disposition home or self-care (01) ==
PROVIDERS: Emergency Medicine; Emergency Provider Emergency Medicine; Family Provider Family Medicine; PCP Family Medicine
DX: N20.0 Calculus of kidney (principal); R11.10 Vomiting, unspecified
CPT/HCPCS: 36415; 51798; 74176; 80053; 81001; 83690; 85025; 87086; 96365; 96375; 96376; 99284; J0696; J1170; J1885; J2060

== ENCOUNTER 2022-10-18 10:28 | Day surgery (SDC) | payer OTHER, SELFPAY ==
--- NOTE | 2022-10-18 | PATH_ITS ---
[facility] Accession Number: [id number] No. of containers..01 Tissue . 01 Material submitted: . colon - TRANSVERSE COLON POLYP . 01 Diagnosis: Transverse Colon Polyp, Biopsy: Hyperplastic polyp. MRV 10/22/2022 1221 Local . 01 Electronically signed: . Felicia Velasco MD, Pathologist NPI- [id number] . 01 Gross description: . TRANSVERSE COLON POLYP: Received in formalin are 2 fragment(s) of villalobos, soft tissue measuring 0.3 x 0.2 x 0.2 cm to 0.5 x 0.3 x 0.3 cm submitted entirely in 1 cassette(s) /LUCIA 10/21/2022 0022 Local . 01 Pathologist provided ICD-10: D12.3 . 01 CPT . 803441 Specimen Comment: A courtesy copy of this report has been sent to [phone] Performed at: 01 [facility] [address] [place] [address], [place], [place] [id number] MD Maico Padilla MD Phone: [phone]
[2022-10-18] MEDS: LACTATED RINGERS 1,000 ML 100 ML IV (12:18)
[2022-10-18 12:31] VITALS: BP 154/95; PULSE 98; RESP 16; TEMP 36.6; O2SAT 99; BMI 36.0
--- NOTE | 2022-10-18 13:14 | P.HP_ITS ---
History of Present Illness History of Present Illness Date Patient Seen: 10/18/22 Time Patient Seen: 13:14 Chief complaint: Dx Colonoscopy Narrative: Here for colonoscopy. Personal history of colon polyps including an appendiceal orifice polyp that was addressed by way of appendectomy. [facility] Medical History Allergies Ankle pain Anxiety (~2001) Asthma Bipolar disorder, unspecified Chronic back pain Depression (~2001) Far-sightedness Fibromyalgia Hoarding behavior Hyperthyroidism (~2016) Interpersonal problem Kidney stones (~2019) Learning disabilities Migraines Shoulder pain Stress Surgical History Anesthesia History of section (~2002) Status post appendectomy (~2018) Status post breast reduction (~2009) Status post cholecystectomy Family History Father Cancer History of heart disease Mother Diabetes mellitus History of heart disease Mental health problem Hemothorax Pleural effusion Hypovolemia Grandfather History of heart disease Grandmother History of heart disease Grandfather History of heart disease Grandmother History of heart disease Social History household members: spouse Smoking Status: Never smoker alcohol intake: current Meds Home Medications and Allergies Home Medications Medication Instructions Recorded Confirmed Type hydrocodone 5 mg-acetaminophen 325 1 tab PO Q6H PRN pain #10 tabs 04/13/20 10/18/22 Rx mg tablet atenolol 25 mg tablet 25 mg PO DAILY 03/13/21 10/18/22 History fluoxetine 20 mg tablet 20 mg PO DAILY 03/13/21 10/18/22 History gabapentin 300 mg capsule 300 mg PO DAILY 03/13/21 10/18/22 History ibuprofen 600 mg tablet 600 mg PO TID 03/13/21 10/18/22 History levothyroxine 25 mcg capsule 25 mcg PO DAILY 03/13/21 10/18/22 History loratadine 10 mg tablet (Claritin) 10 mg PO DAILY 03/13/21 10/18/22 History conjugated estrogens 0.625 mg/gram 0.625 mg vaginal DAILY vaginal 03/17/2107/21 Rx vaginal cream atrophy #30 grams oxycodone 5 mg tablet 5 mg PO Q6H PRN pain #14 tabs 08/07/22 10/18/22 Rx conjugated estrogens 0.625 mg/gram mg vaginal DIRECTED 10/18/22 History vaginal cream (Premarin) Allergies Allergy/AdvReac Type Severity Reaction Status Date / Time fentanyl [FENTANYL] Allergy Severe HALLUCINATIONS, Verified 10/18/22 12:24 EMOTIONAL LABILITY Sulfa (Sulfonamide Allergy Unknown HIVES, Verified 10/18/22 12:24 Antibiotics) DIFFICULTY [SULFA (SULFONAMIDE BREATHING ANTIBIOTICS)] sulfamethoxazole Allergy Unknown Verified 10/18/22 12:24 [From ] trimethoprim [From ] Allergy Unknown Verified 10/18/22 12:24 IV DYE CONTRAST Allergy Unknown HIVES Uncoded 10/18/22 12:24 Review of Systems Review of Systems ROS: Yes All systems reviewed with the patient and are negative except as otherwise documented Exam Vital Signs (past 8 hours): - 10/18/22 12:31 Temperature 98 F Pulse Rate 98 H Respiratory Rate 16 Blood Pressure 154/95 H Pulse Oximetry 99 Oxygen Delivery Method Room Air Oxygen Delivery Method Room Air Assessment & Plan Assessment & Plan narrative: 47-year-old female with a personal history of colon polyps. Surveillance colonoscopy is pursued today.
--- NOTE | 2022-10-18 13:15 | PM.PREOP ---
Pre-operative Note Interval Note History & Physical reviewed/Exam performed by Physician: Yes Changes to H&P: No ASA Class (for procedural sedation): II
[2022-10-18 14:22] VITALS: BP 107/71; PULSE 73; RESP 18; TEMP 36.6; O2SAT 97
--- NOTE | 2022-10-18 14:22 | PM.OP.COLON ---
Operative Date/Time/Diagnoses Date of procedure: 10/18/22 Time of procedure: 14:22 Pre-op diagnosis: Colon polyps history Post-op diagnosis: same Procedure & Clinicians Study performed: Colonoscopy with hot snare polypectomy and cold forceps polypectomy Same procedure as scheduled: Yes Indications: Colon polyps history Surgeon: Juan Carlos Lizarraga Procedure Notes SCOAP/Timeout: Done Procedure in detail: After the risks and benefits were explained, written and verbal informed consent was obtained. The patient was brought into the procedure room and placed into the left lateral decubitus position. Please see anesthesia notes for sedation details. Digital rectal examination was accomplished. The scope was introduced into the patient and advanced under direct visualization to the cecum as identified by the appendiceal orifice and ileocecal valve. The scope was slowly withdrawn to carefully examine the mucosa for any defects or lesions. Comprehensive imaging was accomplished throughout the rectum including the dentate line. The colon was decompressed, the scope was then removed from the patient who tolerated the procedure well. Pediatric colonoscope Bowel prep adequate Scope withdrawal time: 16 minutes Sedation minutes: 28 Complications: none Impression: There was a 6 mm polyp in the transverse colon that was in a very awkward position. I initially attempted to remove this with a snare but could not position the snare appropriately so we removed it with 2 bites using the Jumbo forceps. There was another polyp that was submitted in the same jar a little further distal in the transverse or proximal descending. This was perhaps 6 mm sessile and hot snare was utilized. The cecum was evaluated closely and there was no evidence of any residual polyp. Endoscopic diagnosis Colon polyps x2 Post-procedure Plan for aftercare: 1. Await histopathology 2. Repeat colonoscopy 5 years. Disposition: PACU
[2022-10-18 14:27] VITALS: BP 106/67; PULSE 70; RESP 18; TEMP 36.6; O2SAT 97
[2022-10-18 14:35] VITALS: BP 113/72; PULSE 60; RESP 17; TEMP 36.6; O2SAT 99
[2022-10-18 14:44] VITALS: BP 119/70; PULSE 65; RESP 16; TEMP 36.4; O2SAT 99
== END 2022-10-18 15:05 | disposition home or self-care (01) ==
PROVIDERS: Family Provider Family Medicine; PCP Family Medicine; Referring Provider Internal Medicine Gastroenterology; Visit Provider Internal Medicine Gastroenterology
PROC: 0DJD8ZZ Inspection of Lower Intestinal Tract, Via Natural or Artificial Opening Endoscopic (ICD-10-PCS; CPT 45378; principal; 2022-10-18 12:30)
DX: Z12.11 Encounter for screening for malignant neoplasm of colon (principal); Z86.010 Personal history of colon polyps; D12.3 Benign neoplasm of transverse colon
CPT/HCPCS: 45385; 45380; J2704

== ENCOUNTER 2022-12-30 14:52 | Emergency (ER) | payer OTHER, SELFPAY ==
[2022-12-30 15:02] VITALS: BP 114/63; PULSE 67; RESP 18; TEMP 36.9; O2SAT 99; BMI 33.8
--- NOTE | 2022-12-30 15:45 | PC.NURSE ---
Pt reports feeling like her heart is racing and feeling anxious, Pt reports that she contacted her PCP yesterday and was instructed to stop taking her thyroid medication, she followed those instructions. Pt reports that PCP wanted her evaluated at the ED yesterday but was unable to come until today.
--- NOTE | 2022-12-30 16:05 | ED_ITS ---
HPI - Arrhythmia/Palpitations General Chief Complaint: Arrhythmia/Palpitations Stated Complaint: sweats, chills, heart racing Time Seen by Provider: 12/30/22 15:26 Source: patient Mode of arrival: Ambulatory History of Present Illness HPI narrative: Patient is a 47-year-old female. Just under 2 weeks ago she started back on all of her medications. States she was off of all of her medicines for approximately 4-6 weeks. This is because of an issue with her pharmacy in her primary doctor. She states she is now currently back on all of her medicines at the doses that she was on before. Over the past week she is been having issues with some brain fog. Is also feeling like her heart is beating fast. Having chills. A couple days ago she did have thoughts of harming herself. She does not have any of those thoughts today. She denies any chest pain. No lower extremity swelling. Related Data Home Medications Medication Instructions Recorded Confirmed atenolol 25 mg tablet 25 mg PO DAILY 03/13/21 10/18/22 fluoxetine 20 mg tablet 20 mg PO DAILY 03/13/21 10/18/22 gabapentin 300 mg capsule 300 mg PO DAILY 03/13/21 10/18/22 ibuprofen 600 mg tablet 600 mg PO TID 03/13/21 10/18/22 levothyroxine 25 mcg capsule 25 mcg PO DAILY 03/13/21 10/18/22 loratadine 10 mg tablet (Claritin) 10 mg PO DAILY 03/13/21 10/18/22 conjugated estrogens 0.625 mg/gram mg vaginal DIRECTED 10/18/22 vaginal cream (Premarin) Previous Rx's Medication Instructions Recorded hydrocodone 5 mg-acetaminophen 325 1 tab PO Q6H PRN pain #10 tabs 04/13/20 mg tablet conjugated estrogens 0.625 mg/gram 0.625 mg vaginal DAILY vaginal 03/17/21 vaginal cream atrophy #30 grams oxycodone 5 mg tablet 5 mg PO Q6H PRN pain #14 tabs 08/07/22 lorazepam 0.5 mg tablet (Ativan) 0.5 mg PO TID PRN anxiety #14 tabs 12/30/22 Allergies Allergy/AdvReac Type Severity Reaction Status Date / Time fentanyl [FENTANYL] Allergy Severe HALLUCINATIONS, Verified 10/18/22 12:24 EMOTIONAL LABILITY Sulfa (Sulfonamide Allergy Unknown HIVES, Verified 10/18/22 12:24 Antibiotics) DIFFICULTY [SULFA (SULFONAMIDE BREATHING ANTIBIOTICS)] sulfamethoxazole Allergy Unknown Verified 10/18/22 12:24 [From ] trimethoprim [From ] Allergy Unknown Verified 10/18/22 12:24 IV DYE CONTRAST Allergy Unknown HIVES Uncoded 10/18/22 12:24 Review of Systems Review of Systems ROS Unobtainable: All systems reviewed & are unremarkable except as noted in HPI and below Patient History Medical History Far-sightedness Asthma Allergies Migraines Shoulder pain Chronic back pain Ankle pain Kidney stones (~2019) Hyperthyroidism (~2016) Bipolar disorder, unspecified Learning disabilities Interpersonal problem Hoarding behavior Stress Fibromyalgia Depression (~2001) Anxiety (~2001) Surgical History Anesthesia History of section (~2002) Status post appendectomy (~2018) Status post breast reduction (~2009) Status post cholecystectomy Family History Father Cancer History of heart disease Mother Diabetes mellitus History of heart disease Mental health problem Hemothorax Pleural effusion Hypovolemia Grandfather History of heart disease Grandmother History of heart disease Grandfather History of heart disease Grandmother History of heart disease Social History household members: spouse Smoking Status: Never smoker alcohol intake: current Smoking Status: Never smoker alcohol intake frequency: a few times a month Substance Use Type: does not use Exam Initial Vital Signs Initial Vital Signs: Vital Signs Temperature 98.4 F 12/30/22 15:02 Pulse Rate 67 12/30/22 15:02 Respiratory Rate 18 12/30/22 15:02 Blood Pressure 114/63 12/30/22 15:02 Pulse Oximetry 99 12/30/22 15:02 Oxygen Delivery Method Room Air 12/30/22 15:02 Const General: cooperative, comfortable and No ill appearing HENMT Head: normal to inspection and normocephalic Resp Effort & Inspection: normal respiratory effort Auscultation: clear to auscultation bilaterally Cardio Rate: regular rate Rhythm: regular rhythm GI Inspection: normal to inspection and non-distended Palpation: soft Skin General: no rashes or lesions noted Neuro General: patient alert, patient awake, patient oriented x3 and moves all extremities Speech: speech normal Motor: muscle tone normal throughout Extrem General: capillary refill normal Psych Appearance: grossly normal and well kempt Speech and Movement: speech and movement normal Mood: congruent mood Affect: normal affect Course Orders Ordered: ED Orders 12/30/22 15:13 [place] [facility] [place] [employer] [facility] Stat 12/30/22 16:00 EKG-12 Lead Stat 12/30/22 16:20 Basic Metabolic Panel Stat Complete Blood Count AUTO DIFF Stat Thyroid Stimulating Hormone Stat Discontinued Medications Lorazepam (Lorazepam 0.5 Mg Tablet) 1 mg PO NOW ONE Stop: 12/30/22 16:06 Last Admin: 12/30/22 16:10 Dose: 1 mg Documented By: LILIANA Vital Signs Vital signs: Vital Signs - 8 hr 12/30/22 15:02 Temperature 98.4 F Pulse Rate 67 Respiratory Rate 18 Blood Pressure 114/63 Pulse Oximetry 99 Oxygen Delivery Method Room Air MDM - Arrhythmia/Palpitations Lab Data Attestation: I reviewed the patient's lab results. 12/30/22 16:20 12/30/22 16:20 Labs: Lab Results 12/30/22 Range/Units 16:20 WBC 9.3 (4.5-11.0) X10^3/uL RBC 4.44 (4.0-5.2) X10^6/uL Hgb 14.0 (12.0-16.0) g/dL Hct 39.6 (36-46) % MCV 89.3 (80-100) fL MCH 31.5 (26-34) PG MCHC 35.2 (30-36) % RDW 12.7 (11.6-14.8) % Plt Count 250 (150-400) X10^3/uL Neut % (Auto) 69.4 (50-75) % Lymph % (Auto) 25.8 (25-40) % [place] % (Auto) 4.1 (3-14) % Eos % (Auto) 0.4 L (2-4) % Baso % (Auto) 0.3 (0-2) % Neut # (Auto) 6400 (8468-5010) /uL Lymph # (Auto) 2400 (8218-9535) /uL [place] # (Auto) 400 (0-900) /uL Eos # (Auto) 0 (0-450) /uL Baso # (Auto) 0 (0-100) /uL Sodium 139 (137-145) mmol/L Potassium 3.9 (3.4-5.1) mmol/L Chloride 105 (98-107) mmol/L Carbon Dioxide 26 (22-32) mmol/L BUN 10 (7-17) mg/dL Creatinine 0.75 (0.52-1.04) mg/dL Estimated GFR > 60 (>60) mL/min BUN/Creatinine Ratio 13.3 (6-22) Glucose 94 (70-100) mg/dL Calcium 9.8 (8.4-10.2) mg/dL TSH 2.07 (0.47-4.68) uIU/mL Point of Care Testing Test Results Negative Urine Dip Bedside Urine Glucose Negative Bedside Urine Bilirubin - Negative Bedside Urine Ketone - Negative Urine Specific [place] 1.020 Bedside Urine Occult Blood - Negative Bedside Urine pH 6.0 Bedside Urine Protein - Negative Bedside Urine Urobilinogen - Negative Bedside Urine Nitrite - Negative Bedside Urine Leukocytes - Negative Esterase ECG Data Attestation: I personally reviewed and interpreted this ECG as follows: Interpretation: Sinus rhythm Ventricular rate 63 Normal axis Normal QRS Normal QTC No ST T wave changes MDM Narrative Medical decision making narrative: Patient is not currently suicidal. Labs are unremarkable. Is having no palpitations here in the ER. Her EKG is unremarkable. No fevers. I do suspect that her symptoms are related to her starting all of her medications back again at 1 time. She was seen by social work. Will discharge patient home with instructions to follow-up primary provider. She was given return precautions. She expressed understanding and agreement. Discharge Plan Departure Patient Disposition: Home Clinical Impression: Palpitations, Anxiety Instructions: DI for Palpitations Activity Restrictions/Additional Instructions: Recommend that you take all of your medications as directed. Contact your primary doctor for follow-up. Return to the emergency department for new or worsening symptoms. Prescriptions: New lorazepam [Ativan] 0.5 mg tablet 0.5 mg PO TID PRN (Reason: anxiety) Qty: 14 0RF No Action conjugated estrogens 0.625 mg/gram cream 0.625 mg vaginal DAILY Qty: 30 3RF Rx Instructions: Use daily for 14 days, then 2x weekly. gabapentin 300 mg capsule 300 mg PO DAILY levothyroxine 25 mcg capsule 25 mcg PO DAILY loratadine [Claritin] 10 mg tablet 10 mg PO DAILY atenolol 25 mg tablet 25 mg PO DAILY fluoxetine 20 mg tablet 20 mg PO DAILY ibuprofen 600 mg tablet 600 mg PO TID Premarin 0.625 mg/gram cream vaginal DIRECTED Patient Comments: twice a week hydrocodone-acetaminophen 5-325 mg tablet 1 tab PO Q6H PRN (Reason: pain) Qty: 10 0RF oxycodone 5 mg tablet 5 mg PO Q6H PRN (Reason: pain) Qty: 14 0RF Referrals: Nafisa Jeffers DO [Primary Care Provider] - Stand Alone Forms: Patient Portal/API
[2022-12-30] MEDS: LORazepam 0.5 MG TABLET 1 MG PO (16:10)
[2022-12-30 16:41] LABS: Add Manual Diff / Slide Review NO; Basophils Absolute Auto 0 /uL (0-100); Basophils Percent Auto 0.3 % (0-2); Eosinophils Absolute Auto 0 /uL (0-450); Eosinophils Percent Auto 0.4 % (2-4); Hematocrit 39.6 % (36-46); Lymphocytes Absolute Auto 2400 /uL (1100-4500); Lymphocytes Percent Auto 25.8 % (25-40); Mean Corpuscular HGB Conc 35.2 % (30-36); Mean Corpuscular Hemoglobin 31.5 PG (26-34); Mean Corpuscular Volume 89.3 fL (80-100); Monocytes Absolute Auto 400 /uL (0-900); Monocytes Percent Auto 4.1 % (3-14); Neutrophils Absolute Auto 6400 /uL (1500-7000); Neutrophils Percent Auto 69.4 % (50-75); Platelet Count 250 X10^3/uL (150-400); Red Blood Cell Count 4.44 X10^6/uL (4.0-5.2); Red Cell Distribution Width 12.7 % (11.6-14.8); White Blood Cell Count 9.3 X10^3/uL (4.5-11.0)
[2022-12-30 16:46] LABS: BUN Creatinine Ratio 13.3 (6-22); Blood Urea Nitrogen 10 mg/dL (7-17); Calcium 9.8 mg/dL (8.4-10.2); Carbon Dioxide 26 mmol/L (22-32); Chloride 105 mmol/L (98-107); Estimated Glomerular Filt Rate > 60 mL/min (>60); Glucose 94 mg/dL (70-100); HEMOLYSIS < 15 (0-50); Potassium 3.9 mmol/L (3.4-5.1); Sodium 139 mmol/L (137-145)
[2022-12-30 17:18] LABS: Thyroid Stimulating Hormone 2.07 uIU/mL (0.47-4.68)
--- NOTE | 2022-12-30 17:41 | CM.SWNOTE ---
ED MANAGER UTILITIES Note MANAGER UTILITIES receives consult due to concern for patient's anxiety attack and recent thoughts of SI a few days ago. MANAGER UTILITIES enters room to meet with patient, present in room is patient's daughter and . Patient gives consent for them to be present. Patient presents as A/Ox4. Patient endorses she had an anxiety attack earlier where she was sweating, racing heart rate and experiencing anxiety. Patient endorses she did have SI a few days ago, has a hx of SI. Patient denies current SI. Patient denies plans or intent. It is reported that patient has a gun in the home but it is locked in a gun safe. Patient's spouse endorses he ensures patient's safety. Patient endorses a recent trigger was an incident at work and patient endorses that she recently restarted all of her medications. Patient endorses she is feeling better now after taking Ativan in the ED. ED provider to prescribe Ativan PRN upon d/c. Patient endorses she has regular f/u with PCP. Patient denies current interest in therapist and endorses hx of seeing a therapist on/off. Patient endorses safety if d/c to home, spouse endorses ensuring patient safety. Patient endorses awareness of breathing exercises. Plan: patient to d/c to home with family, patient to d/c with PRN ativan, patient to f/u with PCP as needed. HATTIE Lund
[2022-12-30 18:05] VITALS: BP 118/66; PULSE 68; RESP 20; O2SAT 98
== END 2022-12-30 18:10 | disposition home or self-care (01) ==
PROVIDERS: Emergency Provider Emergency Medicine; Family Provider Family Medicine; PCP Family Medicine
DX: R00.2 Palpitations (principal); F41.9 Anxiety disorder, unspecified; Z79.899 Other long term (current) drug therapy
CPT/HCPCS: 36415; 80048; 81003; 81025; 84443; 85025; 93005; 99284

== ENCOUNTER → 2023-04-10 13:40 | Outpatient (CLI) | payer OTHER, SELFPAY ==
--- NOTE | 2023-04-10 13:41 | DI.MRI.S_ITS ---
PROCEDURE: MR THORACIC SPINE WO CON INDICATIONS: Other low back pain TECHNIQUE: Noncontrast sagittal T1 spine echo and T2 fast spin echo, sagittal STIR, and T2 fast spin echo through the thoracic spine. COMPARISON: None. FINDINGS: Image quality: Excellent. Alignment and Curvature: There is normal bony alignment. Bone Marrow: Marrow is of normal overall signal. No acute vertebral body compression fractures. Spinal Cord: Visualized spinal cord is normal in size and signal. Paraspinous Soft Tissues: No paravertebral masses. T2 hyperintense lesion within the liver, favored to represent simple cysts. Miscellaneous: Multilevel disc desiccation height loss and small posterior disc bulges. Mild central canal and neural foraminal stenosis at T9-T10 and T10-T11. Otherwise, on axial images, central canal and foramina appear widely patent at all scanned levels. IMPRESSION: Mild degenerative changes of the thoracic spine as described above. Dictated by: Santo Harmon M.D. on 04/11/2023 at 10:32 Approved by: Santo Harmon M.D. on 04/11/2023 at 10:36
== END ==
PROVIDERS: Family Provider Family Medicine; PCP Family Medicine; Referring Provider Family Medicine; Visit Provider Family Medicine
DX: M47.814 Spondylosis without myelopathy or radiculopathy, thoracic region (principal); M54.59 Other low back pain; I10 Essential (primary) hypertension
CPT/HCPCS: 72146

== ENCOUNTER 2023-05-11 12:31 | Emergency (ER) | payer OTHER, SELFPAY ==
[2023-05-11 12:35] VITALS: BMI 32.7
[2023-05-11 12:47] VITALS: BP 144/72; PULSE 58; RESP 16; TEMP 37; O2SAT 99
[2023-05-11 13:07] LABS: UR Morphine/Opiate cutoff 300 Negative (Negative); Ur Creatinine Normal (Normal); Ur Specific Gravity Normal (Normal); Urine Amphetamines Negative (Negative); Urine Barbiturates Negative (Negative); Urine Benzodiazepines Negative (Negative); Urine Cocaine Negative (Negative); Urine MDMA Negative (Negative); Urine Methadone Negative (Negative); Urine Methamphetamines Negative (Negative); Urine Oxycodone Negative (Negative); Urine Phencyclidine Negative (Negative); Urine Tetrahydrocannabinol Negative (Negative); Urine Tricyclic Antidepressant Negative (Negative); Urine pH Normal (Normal)
[2023-05-11 13:26] LABS: Add Manual Diff / Slide Review NO; Basophils Absolute Auto 100 /uL (0-100); Basophils Percent Auto 0.5 % (0-2); Eosinophils Absolute Auto 0 /uL (0-450); Eosinophils Percent Auto 0.3 % (2-4); Hematocrit 40.1 % (36-46); Hemoglobin 13.8 g/dL (12.0-16.0); Lymphocytes Absolute Auto 3300 /uL (1100-4500); Lymphocytes Percent Auto 26.6 % (25-40); Mean Corpuscular HGB Conc 34.3 % (30-36); Mean Corpuscular Hemoglobin 31.1 PG (26-34); Mean Corpuscular Volume 90.8 fL (80-100); Monocytes Absolute Auto 500 /uL (0-900); Monocytes Percent Auto 3.7 % (3-14); Neutrophils Absolute Auto 8600 /uL (1500-7000); Neutrophils Percent Auto 68.9 % (50-75); Platelet Count 271 X10^3/uL (150-400); Red Blood Cell Count 4.42 X10^6/uL (4.0-5.2); Red Cell Distribution Width 12.9 % (11.6-14.8); White Blood Cell Count 12.4 X10^3/uL (4.5-11.0)
[2023-05-11 13:50] LABS: Acetaminophen < 10 ug/mL (10-30); Alanine Aminotransferase 59 IU/L (<35); Albumin 4.5 g/dL (3.5-5.0); Albumin Globulin Ratio 1.2 (1.0-2.8); Alkaline Phosphatase 74 U/L (38-126); Aspartate Aminotransferase 29 IU/L (14-36); BUN Creatinine Ratio 16.9 (6-22); Bilirubin Total 0.9 mg/dL (0.2-1.3); Blood Urea Nitrogen 11 mg/dL (7-17); Calcium 9.4 mg/dL (8.4-10.2); Carbon Dioxide 26 mmol/L (22-32); Chloride 105 mmol/L (98-107); Estimated Glomerular Filt Rate > 60 mL/min (>60); Ethanol (ETOH) < 10 mg/dL; Globulin 3.7 g/dL (1.7-4.1); Glucose 98 mg/dL (70-100); HEMOLYSIS < 15 (0-50); Potassium 4.1 mmol/L (3.4-5.1); Salicylate < 1.0 mg/dL (<20); Sodium 141 mmol/L (137-145); Total Protein 8.2 g/dL (6.3-8.2)
[2023-05-11 13:51] LABS: Influenza A - CEPHEID Flu A NEGATIVE (NEGATIVE); Influenza B - CEPHEID Flu B NEGATIVE (NEGATIVE); Respiratory Syncytial Virus Negative (Negative)
[2023-05-11 14:04] LABS: Free T4, Direct Thyroxine 1.07 ng/dL (0.78-2.19)
[2023-05-11 14:09] LABS: COVID-19 CEPHEID 4-PLEX PCR Negative (Negative)
--- NOTE | 2023-05-11 14:10 | ED_ITS ---
HPI - Psych <Felisa Mckeon, DO - Last Filed: 05/14/23 06:54> General Chief Complaint: Psychiatric Symptoms Stated Complaint: SI Time Seen by Provider: 05/11/23 12:57 Source: patient and EMS Mode of arrival: EMS History of Present Illness HPI Narrative: Patient 48-year-old female history of depression presenting today with suicidal ideations. She reports that today she felt like she would take her 's gun go off [place] the [place] and end it.She also reports that she has had fever and body aches ongoing for about 1 week. She has some mild abdominal pain but no painful or frequent urination. No nausea or vomiting or headache. She reports that she had a temperature this morning of 102 but is afebrile here. She denies any sore throat or cough. She reports that she was hospitalized about 15 years ago when she was suicidal and homicidal. She currently is voluntary and wants. Related Data Home Medications Medication Instructions Recorded Confirmed atenolol 25 mg tablet 25 mg PO QPM 03/13/21 05/11/23 gabapentin 300 mg capsule 300 mg PO QPM 03/13/21 05/11/23 loratadine 10 mg tablet (Claritin) 10 mg PO QPM 03/13/21 05/11/23 acetaminophen 300 mg-codeine 30 mg 1 tab PO Q6H PRN Pain (Scale Score 05/11/23 05/11/23 tablet 7-10) acetaminophen 500 mg tablet 1,000 mg PO Q6H PRN pain/fever 05/11/23 05/11/23 (Acetaminophen Extra Strength) conjugated estrogens 0.625 mg/gram 1 applic vaginal 2XW 05/11/23 05/11/23 vaginal cream (Premarin) diclofenac sodium 1 % topical gel 2 g topical QID PRN joint pain 05/11/23 05/11/23 (Aleve (diclofenac)) diphenhydramine 25 1 tab PO BEDTIME PRN Insomnia 05/11/23 05/11/23 mg-acetaminophen 500 mg tablet (Tylenol PM Extra Strength) fluoxetine 20 mg capsule 40 mg PO QAM 05/11/23 05/11/23 ibuprofen 200 mg-diphenhydramine 1 cap PO BEDTIME PRN Insomnia 05/11/23 05/11/23 HCl 25 mg capsule (Ibuprofen PM) magnesium 250 mg tablet 250 mg PO QPM 05/11/23 05/11/23 metronidazole 0.75 % (37.5 mg/5 1 appful vaginal DAILY PRN Vaginal 05/11/23 05/11/23 gram) vaginal gel (Vandazole) Cleansing Allergies Allergy/AdvReac Type Severity Reaction Status Date / Time fentanyl [FENTANYL] Allergy Severe HALLUCINATIONS, Verified 05/11/23 13:21 EMOTIONAL LABILITY Iodinated Contrast Media Allergy Severe Anaphylaxis Verified 05/11/23 13:25 Sulfa (Sulfonamide Allergy Unknown HIVES, Verified 05/11/23 13:21 Antibiotics) DIFFICULTY [SULFA (SULFONAMIDE BREATHING ANTIBIOTICS)] sulfamethoxazole Allergy Unknown Verified 05/11/23 13:21 [From SEPTRA] trimethoprim [From SEPTRA] Allergy Unknown Verified 05/11/23 13:21 levothyroxine AdvReac Severe Hallucinati Verified 05/11/23 13:25 ng Patient History <Felisa Mckeon DO - Last Filed: 05/14/23 06:54> Medical History Far-sightedness Asthma Allergies Migraines Shoulder pain Chronic back pain Ankle pain Kidney stones (~2019) Hyperthyroidism (~2016) Bipolar disorder, unspecified Learning disabilities Interpersonal problem Hoarding behavior Stress Fibromyalgia Depression (~2001) Anxiety (~2001) Surgical History Anesthesia History of section (~2002) Status post appendectomy (~2018) Status post breast reduction (~2009) Status post cholecystectomy Family History Father Cancer History of heart disease Mother Diabetes mellitus History of heart disease Mental health problem Hemothorax Pleural effusion Hypovolemia Grandfather History of heart disease Grandmother History of heart disease Grandfather History of heart disease Grandmother History of heart disease Social History household members: spouse Smoking Status: Never smoker alcohol intake: current Smoking Status: Never smoker alcohol intake frequency: a few times a month Substance Use Type: does not use Exam <Felisa Mckeon DO - Last Filed: 05/14/23 06:54> Initial Vital Signs Initial Vital Signs: Vital Signs Temperature 98.6 F 05/11/23 12:47 Pulse Rate 58 L 05/11/23 12:47 Respiratory Rate 16 05/11/23 12:47 Blood Pressure 144/72 H 05/11/23 12:47 Pulse Oximetry 99 05/11/23 12:47 Oxygen Delivery Method Room Air 05/11/23 12:47 GENERAL: Alert pleasant well-appearing 48-year-old female and in no acute distress. HEENT: Head atraumatic,EOMI, pupils reactive, face symmetric, moist mucous membranes CARDIOVASCULAR: Regular rate and rhythm without murmurs, rubs or gallops. RESPIRATORY: Breath sounds equal bilaterally, no wheezes rales or rhonchi. ABDOMEN: Soft, minimal right lower quadrant pain : No CVA tenderness EXTREMITIES: Normal range of motion, no clubbing or edema. Neurovascularly intact NEUROLOGICAL: Alert and oriented x4.Normal gait and speech SKIN: Warm, dry, no laceration, no petechiae, no rashes or lesions. <Paige Muller MD - Last Filed: 05/13/23 05:36> Initial Vital Signs Initial Vital Signs: Vital Signs Temperature 98.6 F 05/11/23 12:47 Pulse Rate 58 L 05/11/23 12:47 Respiratory Rate 16 05/11/23 12:47 Blood Pressure 144/72 H 05/11/23 12:47 Pulse Oximetry 99 05/11/23 12:47 Oxygen Delivery Method Room Air 05/11/23 12:47 Course <Felisa Mckeon DO - Last Filed: 05/14/23 06:54> Orders Ordered: Discontinued Medications Atenolol (Atenolol 25 Mg Tablet) 25 mg PO NOW ONE Stop: 05/11/23 20:26 Last Admin: 05/11/23 21:02 Dose: 25 mg Documented By: RL Diphenhydramine HCl (Diphenhydramine 50 Mg/Ml Vial) 25 mg IV NOW ONE Stop: 05/11/23 15:29 Last Admin: 05/11/23 15:49 Dose: 25 mg Documented By: RLS Fluoxetine HCl (Fluoxetine 20 Mg Capsule) 40 mg PO NOW ONE Stop: 05/11/23 20:26 Last Admin: 05/11/23 21:02 Dose: 40 mg Documented By: RL Gabapentin (Gabapentin 300 Mg Capsule) 300 mg PO NOW ONE Stop: 05/11/23 20:26 Last Admin: 05/11/23 21:02 Dose: 300 mg Documented By: RL Magnesium Chloride (Magnesium Chloride 64 Mg Tablet) 128 mg PO NOW ONE Stop: 05/11/23 20:26 Last Admin: 05/11/23 21:05 Dose: Not Given Documented By: JANET Methylprednisolone (Methylprednisolone 125 Mg/2 Ml Vial) 125 mg IV NOW ONE Stop: 05/11/23 15:29 Last Admin: 05/11/23 15:45 Dose: 125 mg Documented By: CANDACE Trazodone HCl (Trazodone 50 Mg Tablet) 100 mg PO BEDTIME [facility] Last Admin: 05/11/23 21:02 Dose: 100 mg Documented By: JANET Vital Signs Vital signs: Vital Signs - 8 hr 05/11/23 12:47 05/11/23 17:22 05/11/23 18:14 Temperature 98.6 F 98.6 F 99.1 F Pulse Rate 58 L 59 L Respiratory Rate 16 16 Blood Pressure 144/72 H 140/80 Pulse Oximetry 99 98 Oxygen Delivery Method Room Air Room Air 05/11/23 18:25 Temperature 99.1 F Pulse Rate 82 Respiratory Rate 18 Blood Pressure 146/74 H Pulse Oximetry 98 Oxygen Delivery Method Room Air <Paige Muller MD - Last Filed: 05/13/23 05:36> Orders Ordered: Discontinued Medications Atenolol (Atenolol 25 Mg Tablet) 25 mg PO NOW ONE Stop: 05/11/23 20:26 Last Admin: 05/11/23 21:02 Dose: 25 mg Documented By: JANET Diphenhydramine HCl (Diphenhydramine 50 Mg/Ml Vial) 25 mg IV NOW ONE Stop: 05/11/23 15:29 Last Admin: 05/11/23 15:49 Dose: 25 mg Documented By: CANDACE Fluoxetine HCl (Fluoxetine 20 Mg Capsule) 40 mg PO NOW ONE Stop: 05/11/23 20:26 Last Admin: 05/11/23 21:02 Dose: 40 mg Documented By: JANET Gabapentin (Gabapentin 300 Mg Capsule) 300 mg PO NOW ONE Stop: 05/11/23 20:26 Last Admin: 05/11/23 21:02 Dose: 300 mg Documented By: JANET Magnesium Chloride (Magnesium Chloride 64 Mg Tablet) 128 mg PO NOW ONE Stop: 05/11/23 20:26 Last Admin: 05/11/23 21:05 Dose: Not Given Documented By: JANET Methylprednisolone (Methylprednisolone 125 Mg/2 Ml Vial) 125 mg IV NOW ONE Stop: 05/11/23 15:29 Last Admin: 05/11/23 15:45 Dose: 125 mg Documented By: CANDACE Trazodone HCl (Trazodone 50 Mg Tablet) 100 mg PO BEDTIME [facility] Last Admin: 05/11/23 21:02 Dose: 100 mg Documented By: JANET Vital Signs Vital signs: Vital Signs - 8 hr 05/11/23 12:47 05/11/23 17:22 05/11/23 18:14 Temperature 98.6 F 98.6 F 99.1 F Pulse Rate 58 L 59 L Respiratory Rate 16 16 Blood Pressure 144/72 H 140/80 Pulse Oximetry 99 98 Oxygen Delivery Method Room Air Room Air 05/11/23 18:25 Temperature 99.1 F Pulse Rate 82 Respiratory Rate 18 Blood Pressure 146/74 H Pulse Oximetry 98 Oxygen Delivery Method Room Air MDM - Psych <Felisa Mckeon DO - Last Filed: 05/14/23 06:54> Lab Data 05/11/23 13:10 05/11/23 13:10 Labs: Lab Results 05/11/23 05/11/23 Range/Units 12:57 13:10 WBC 12.4 H (4.5-11.0) X10^3/uL RBC 4.42 (4.0-5.2) X10^6/uL Hgb 13.8 (12.0-16.0) g/dL Hct 40.1 (36-46) % MCV 90.8 (80-100) fL MCH 31.1 (26-34) PG MCHC 34.3 (30-36) % RDW 12.9 (11.6-14.8) % Plt Count 271 (150-400) X10^3/uL Neut % (Auto) 68.9 (50-75) % Lymph % (Auto) 26.6 (25-40) % [place] % (Auto) 3.7 (3-14) % Eos % (Auto) 0.3 L (2-4) % Baso % (Auto) 0.5 (0-2) % Neut # (Auto) 8600 H (7081-8886) /uL Lymph # (Auto) 3300 (1454-8504) /uL [place] # (Auto) 500 (0-900) /uL Eos # (Auto) 0 (0-450) /uL Baso # (Auto) 100 (0-100) /uL Sodium 141 (137-145) mmol/L Potassium 4.1 (3.4-5.1) mmol/L Chloride 105 (98-107) mmol/L Carbon Dioxide 26 (22-32) mmol/L BUN 11 (7-17) mg/dL Creatinine 0.65 (0.52-1.04) mg/dL Estimated GFR > 60 (>60) mL/min BUN/Creatinine Ratio 16.9 (6-22) Glucose 98 (70-100) mg/dL Calcium 9.4 (8.4-10.2) mg/dL Total Bilirubin 0.9 (0.2-1.3) mg/dL AST 29 (14-36) IU/L ALT 59 H (<35) IU/L Alkaline Phosphatase 74 (38-126) U/L Total Protein 8.2 (6.3-8.2) g/dL Albumin 4.5 (3.5-5.0) g/dL Globulin 3.7 (1.7-4.1) g/dL Albumin/Globulin Ratio 1.2 (1.0-2.8) TSH 1.90 (0.47-4.68) uIU/mL Free T4 1.07 (0.78-2.19) ng/dL Salicylates < 1.0 (<20) mg/dL U Opiates 300ng/mL cut Negative (Negative) Ur Oxycodone Screen Negative (Negative) Urine Methadone Screen Negative (Negative) Acetaminophen < 10 (10-30) ug/mL Ur Barbiturates Screen Negative (Negative) U Tricyclic Antidepress Negative (Negative) Ur Phencyclidine Scrn Negative (Negative) Ur Amphetamines Screen Negative (Negative) U Methamphetamines Scrn Negative (Negative) Ur MDMA Scrn (Ecstasy) Negative (Negative) U Benzodiazepines Scrn Negative (Negative) Urine Cocaine Screen Negative (Negative) U Marijuana (THC) Screen Negative (Negative) Urine pH Normal (Normal) Urine Specific [place] Normal (Normal) Ethyl Alcohol < 10 ( - 10) mg/dL Ur Creatinine Normal (Normal) SARS-CoV-2 (PCR) Negative (Negative) Influenza A (RT-PCR) Flu a negative (NEGATIVE) Influenza B (RT-PCR) Flu b negative (NEGATIVE) RSV (PCR) Negative (Negative) Point of Care Testing Test Results Negative Urine Dip Bedside Urine Glucose Negative Bedside Urine Bilirubin - Negative Bedside Urine Ketone - Negative Urine Specific [place] 1.010 Bedside Urine Occult Blood - Negative Bedside Urine pH 6.0 Bedside Urine Protein - Negative Bedside Urine Urobilinogen - Negative Bedside Urine Nitrite - Negative Bedside Urine Leukocytes - Negative Esterase Imaging Data CT scan - abdomen/pelvis: Radiologist's Impression: PROCEDURE: CT ABDOMEN PELVIS W CON INDICATIONS: RLQ pain with fever TECHNIQUE: After the administration of intravenous contrast, axial sections acquired from the lung bases to the pubic symphysis. Coronal and sagittal reformats were performed. For radiation dose reduction, the following was used: automated exposure control, adjustment of mA and/or kV according to patient size. COMPARISON: None. FINDINGS: Image quality: Diagnostic. Lower Chest: No significant findings. ABDOMEN: Liver: No solid mass. Gallbladder: Surgically absent Biliary ducts: No biliary dilation. Pancreas: No ductal dilation. Spleen: Size is within normal limits. Adrenal Glands: No adrenal nodules. Kidneys and Ureters: No hydronephrosis. No solid mass. No complex renal cystic lesion which requires follow up. Stomach and Bowel: Normal colonic caliber, without significant wall thickening. Appendix is not seen. No evidence of appendicitis. Peritoneum: No abnormal intraperitoneal fluid. No free air. Ventral Wall: No significant ventral hernia. Abdominal Nodes: No retroperitoneal or mesenteric adenopathy by size criteria. Vessels: Aorta and inferior vena cava are normal in size. PELVIS: Pelvic Organs: Unremarkable. Bladder: No bladder wall thickening, accounting for underdistention. Pelvic Nodes: No enlarged lymph nodes. Miscellaneous: No inguinal hernias are seen. Bones: No aggressive osseous abnormality. IMPRESSION: 1. No acute process. Dictated by: Nadeem Calderon M.D. on 05/11/2023 at 16:36 MDM Narrative Medical decision making narrative: Patient 48-year-old female presents today with suicidal ideations. Would like to take a gun to herself. previously has been hospitalized. Can not identify a specific event that has made her feel this way today. She has subsequently also had fever body aches and abdominal pain. Blood work has been reviewed. No cause of fever is identified. Ct reviewed, no acute abnormality. Complicating co-morbidities: Prior history of suicide attempt, currently on fluoxetine 40mg(recently increased dose) Data collected from: patient Medical records reviewed: Prior ER visits for anxiety, routine Gynecology and Gastroenterology visits for health maintenance Differential considered: Acute depression with significant suicidal ideation and an active plan that is quite legal. She does have access to guns. Dysthymia, acute psychosis, Exam documented above, pertinent findings include: Patient is appropriate with somewhat flat affect. No evidence of flight of ideas or pressured thoughts. Exam is benign with no evidence of self-harm Lab Test results independently reviewed as above. Pertinent findings: CBC is reassuring Chemistries are within normal limits TSH is appropriate Urine tox screen is unremarkable No aspirin, no Tylenol Alcohol level is undetectable Respiratory screening shows no COVID flu or RSV Point of care urine test is negative Point of care urine dip is negative Consultations: Social work is not available in the ER for the next 48 hours. Notes have been sent to [facility]. They are being reviewed. The earliest they would have a voluntary female bed would be tomorrow morning. Treatments: Her usual medications are ordered. Additionally, trazodone to help with sleep tonight Discussion: 48-year-old woman presents voluntarily with worsening depression and significant suicidal ideation with a plan to shoot herself with a gun. She is amenable to hospitalization. We will continue working on placement. 230am: pt is accepted at [facility], to arrive around 10am. Transport will be arranged. She is sleeping soundly and will be updated on bed availability and transfer when she awakes. <Paige Muller MD - Last Filed: 05/13/23 05:36> Lab Data Labs: Lab Results 05/11/23 05/11/23 Range/Units 12:57 13:10 WBC 12.4 H (4.5-11.0) X10^3/uL RBC 4.42 (4.0-5.2) X10^6/uL Hgb 13.8 (12.0-16.0) g/dL Hct 40.1 (36-46) % MCV 90.8 (80-100) fL MCH 31.1 (26-34) PG MCHC 34.3 (30-36) % RDW 12.9 (11.6-14.8) % Plt Count 271 (150-400) X10^3/uL Neut % (Auto) 68.9 (50-75) % Lymph % (Auto) 26.6 (25-40) % [place] % (Auto) 3.7 (3-14) % Eos % (Auto) 0.3 L (2-4) % Baso % (Auto) 0.5 (0-2) % Neut # (Auto) 8600 H (2605-9064) /uL Lymph # (Auto) 3300 (9694-1120) /uL [place] # (Auto) 500 (0-900) /uL Eos # (Auto) 0 (0-450) /uL Baso # (Auto) 100 (0-100) /uL Sodium 141 (137-145) mmol/L Potassium 4.1 (3.4-5.1) mmol/L Chloride 105 (98-107) mmol/L Carbon Dioxide 26 (22-32) mmol/L BUN 11 (7-17) mg/dL Creatinine 0.65 (0.52-1.04) mg/dL Estimated GFR > 60 (>60) mL/min BUN/Creatinine Ratio 16.9 (6-22) Glucose 98 (70-100) mg/dL Calcium 9.4 (8.4-10.2) mg/dL Total Bilirubin 0.9 (0.2-1.3) mg/dL AST 29 (14-36) IU/L ALT 59 H (<35) IU/L Alkaline Phosphatase 74 (38-126) U/L Total Protein 8.2 (6.3-8.2) g/dL Albumin 4.5 (3.5-5.0) g/dL Globulin 3.7 (1.7-4.1) g/dL Albumin/Globulin Ratio 1.2 (1.0-2.8) TSH 1.90 (0.47-4.68) uIU/mL Free T4 1.07 (0.78-2.19) ng/dL Salicylates < 1.0 (<20) mg/dL U Opiates 300ng/mL cut Negative (Negative) Ur Oxycodone Screen Negative (Negative) Urine Methadone Screen Negative (Negative) Acetaminophen < 10 (10-30) ug/mL Ur Barbiturates Screen Negative (Negative) U Tricyclic Antidepress Negative (Negative) Ur Phencyclidine Scrn Negative (Negative) Ur Amphetamines Screen Negative (Negative) U Methamphetamines Scrn Negative (Negative) Ur MDMA Scrn (Ecstasy) Negative (Negative) U Benzodiazepines Scrn Negative (Negative) Urine Cocaine Screen Negative (Negative) U Marijuana (THC) Screen Negative (Negative) Urine pH Normal (Normal) Urine Specific [place] Normal (Normal) Ethyl Alcohol < 10 ( - 10) mg/dL Ur Creatinine Normal (Normal) SARS-CoV-2 (PCR) Negative (Negative) Influenza A (RT-PCR) Flu a negative (NEGATIVE) Influenza B (RT-PCR) Flu b negative (NEGATIVE) RSV (PCR) Negative (Negative) Point of Care Testing Test Results Negative Urine Dip Bedside Urine Glucose Negative Bedside Urine Bilirubin - Negative Bedside Urine Ketone - Negative Urine Specific [place] 1.010 Bedside Urine Occult Blood - Negative Bedside Urine pH 6.0 Bedside Urine Protein - Negative Bedside Urine Urobilinogen - Negative Bedside Urine Nitrite - Negative Bedside Urine Leukocytes - Negative Esterase MDM Narrative Medical decision making narrative: Patient 40-year-old female presents today with suicidal ideations. Would like to take a gun to herself. previously has been hospitalized. Can not identify a specific event that has made her feel this way today. She has subsequently also had fever body aches and abdominal pain. Blood work has been reviewed Complicating co-morbidities: Prior history of suicide attempt, currently on fluoxetine 40mg(recently increased dose) Data collected from: patient Medical records reviewed: Prior ER visits for anxiety, routine Gynecology and Gastroenterology visits for health maintenance Differential considered: Acute depression with significant suicidal ideation and an active plan that is quite legal. She does have access to guns. Dysthymia, acute psychosis, Exam documented above, pertinent findings include: Patient is appropriate with somewhat flat affect. No evidence of flight of ideas or pressured thoughts. Exam is benign with no evidence of self-harm Lab Test results independently reviewed as above. Pertinent findings: CBC is reassuring Chemistries are within normal limits TSH is appropriate Urine tox screen is unremarkable No aspirin, no Tylenol Alcohol level is undetectable Respiratory screening shows no COVID flu or RSV Point of care urine test is negative Point of care urine dip is negative Consultations: Social work is not available in the ER for the next 48 hours. Notes have been sent to [facility]. They are being reviewed. The earliest they would have a voluntary female bed would be tomorrow morning. Treatments: Her usual medications are ordered. Additionally, trazodone to help with sleep tonight Discussion: 48-year-old woman presents voluntarily with worsening depression and significant suicidal ideation with a plan to shoot herself with a gun. She is amenable to hospitalization. We will continue working on placement. 230am: pt is accepted at [facility], to arrive around 10am. Transport will be arranged. She is sleeping soundly and will be updated on bed availability and transfer when she awakes. Discharge Plan Departure Patient Disposition: Xfer Psychiatric Hosp Clinical Impression: Depression with suicidal ideation Prescriptions: No Action gabapentin 300 mg capsule 300 mg PO QPM loratadine [Claritin] 10 mg tablet 10 mg PO QPM atenolol 25 mg tablet 25 mg PO QPM metronidazole [Vandazole] 0.75 % (37.5mg/5 gram) Gel 1 appful VAGINAL DAILY PRN (Reason: Vaginal Cleansing) acetaminophen-codeine 300-30 mg tablet 1 tab PO Q6H PRN (Reason: Pain (Scale Score 7-10)) Rx Instructions: pt states she takes 1 q 3 days acetaminophen [Acetaminophen Extra Strength] 500 mg Tablet 1,000 mg PO Q6H PRN (Reason: pain/fever) Premarin 0.625 mg/gram cream 1 applic vaginal 2XW magnesium 250 mg Tablet 250 mg PO QPM diphenhydramine-acetaminophen [Tylenol PM Extra Strength] 25-500 mg Tablet 1 tab PO BEDTIME PRN (Reason: Insomnia) fluoxetine 20 mg capsule 40 mg PO QAM diclofenac sodium [Aleve (diclofenac)] 1 % Gel 2 g TOPICAL QID PRN (Reason: joint pain) Rx Instructions: apply to single elbow, wrist or hand; for hand includes palm/fingers/back of hand Ibuprofen PM 200-25 mg Capsule 1 cap PO BEDTIME PRN (Reason: Insomnia) Referrals: Nafisa Jeffers DO [Primary Care Provider] -
--- NOTE | 2023-05-11 14:51 | DI.CT.S_ITS ---
PROCEDURE: CT ABDOMEN PELVIS W CON INDICATIONS: RLQ pain with fever TECHNIQUE: After the administration of intravenous contrast, axial sections acquired from the lung bases to the pubic symphysis. Coronal and sagittal reformats were performed. For radiation dose reduction, the following was used: automated exposure control, adjustment of mA and/or kV according to patient size. COMPARISON: None. FINDINGS: Image quality: Diagnostic. Lower Chest: No significant findings. ABDOMEN: Liver: No solid mass. Gallbladder: Surgically absent Biliary ducts: No biliary dilation. Pancreas: No ductal dilation. Spleen: Size is within normal limits. Adrenal Glands: No adrenal nodules. Kidneys and Ureters: No hydronephrosis. No solid mass. No complex renal cystic lesion which requires follow up. Stomach and Bowel: Normal colonic caliber, without significant wall thickening. Appendix is not seen. No evidence of appendicitis. Peritoneum: No abnormal intraperitoneal fluid. No free air. Ventral Wall: No significant ventral hernia. Abdominal Nodes: No retroperitoneal or mesenteric adenopathy by size criteria. Vessels: Aorta and inferior vena cava are normal in size. PELVIS: Pelvic Organs: Unremarkable. Bladder: No bladder wall thickening, accounting for underdistention. Pelvic Nodes: No enlarged lymph nodes. Miscellaneous: No inguinal hernias are seen. Bones: No aggressive osseous abnormality. IMPRESSION: 1. No acute process. Dictated by: Nadeem Calderon M.D. on 05/11/2023 at 16:36 Approved by: Nadeem Calderon M.D. on 05/11/2023 at 16:38
--- NOTE | 2023-05-11 15:03 | PC.NURSE ---
COAT BASTER Note: Family is in the room. The stated to the patient that she has a family history of suicidal ideation. Patient was unaware of this history.
[2023-05-11] MEDS: methylPREDNISolone 125 MG/2 ML VIAL IV (15:45)
[2023-05-11] MEDS: diphenhydrAMINE 50 MG/ML VIAL 25 MG IV (15:49)
--- NOTE | 2023-05-11 16:21 | PC.NURSE ---
patient is going to CT
[2023-05-11 17:22] VITALS: BP 140/80; PULSE 59; RESP 16; TEMP 37; O2SAT 98
[2023-05-11 18:14] VITALS: TEMP 37.3
--- NOTE | 2023-05-11 18:16 | PC.NURSE ---
pt woke up in a cold sweat stating this is what has been happening and then a fever will follow after. I took her temp with an oral thermometer and it came back 99.1.
[2023-05-11 18:25] VITALS: BP 146/74; PULSE 82; RESP 18; TEMP 37.3; O2SAT 98
--- NOTE | 2023-05-11 19:14 | PC.NURSE ---
pt got all sweaty, bed bath done , she ambulated to bathroom and assisted with care. blankets changed .
[2023-05-11] MEDS: FLUoxetine 20 MG CAPSULE 40 MG PO (21:02)
[2023-05-11] MEDS: GABAPENTIN 300 MG CAPSULE PO (21:02)
[2023-05-11] MEDS: atenoloL 25 MG TABLET PO (21:02)
[2023-05-11] MEDS: TRAZODONE 50 MG TABLET 100 MG PO (21:02)
--- NOTE | 2023-05-11 21:19 | PC.NURSE ---
Patient reports she has had reached out earlier this month to [facility] in [place] and had an appointment on 05/24/23. Patient states clearly I couldn't wait that long and this happened.
--- NOTE | 2023-05-12 01:28 | PC.NURSE ---
SHIFTMAN note: Spoke to [facility] regarding patient to follow up with a conversation I had with intake person, Lexy, earlier in the evening. We had faxed over the paperwork [id number]. We were trying to find patient a bed. According to [facility], they didn't have patient on their list and didn't have a packet. So I faxed over another packet. GAMA howard
[2023-05-12 06:57] VITALS: BP 140/77; PULSE 74; RESP 15; O2SAT 99
--- NOTE | 2023-05-12 07:03 | PC.NURSE ---
*OILER BANDER note pt made aware shes been accepted at [facility], she let me know that she would call her to update. I got the pt some milk.
[2023-05-12 08:47] VITALS: BP 124/58; PULSE 74; RESP 17; TEMP 37; O2SAT 95
== END 2023-05-12 09:05 ==
PROVIDERS: Emergency Medicine; Emergency Provider Emergency Medicine; Family Provider Family Medicine; PCP Family Medicine
DX: R45.851 Suicidal ideations (principal); F32.A Depression, unspecified; R10.31 Right lower quadrant pain; Z20.822 Contact with and (suspected) exposure to COVID-19
CPT/HCPCS: 0241U; 36415; 74177; 80053; 80305; 80320; 80329; 81003; 81025; 84439; 84443; 85025; 96374; 96375; 99284; 99285; G0480; J1200; J2930

== ENCOUNTER → 2023-12-23 13:23 | Outpatient (CLI) | payer OTHER, SELFPAY ==
--- NOTE | 2023-12-23 13:24 | DI.US.S_ITS ---
LIMITED ULTRASOUND OF RIGHT BREAST: 12/23/2023 CLINICAL: Patient returns today to evaluate a focal asymmetry in the right breast. Comparison is made to exams dated: 12/23/2023 mammogram, 03/13/2022 mammogram, and 02/26/2021 mammogram - [facility]. Color flow and real-time ultrasound of the right breast 2 o'clock region were performed. Harris scale images of the real-time examination were reviewed. There is a benign 0.5 cm x 0.5 cm x 0.4 cm oval mass in the right breast at 2 o'clock anterior depth 2 cm from the nipple. This oval mass is of mixed echogenicity. This correlates as palpated, to the reported pain, and with mammography findings. There are related calcifications. IMPRESSION: BENIGN There is no sonographic evidence of malignancy. The 0.5 cm x 0.5 cm x 0.4 cm oval mass in the right breast is consistent with fat necrosis and is benign. Return to annual mammogram screening schedule is recommended. This exam was interpreted at Station ID: [id number]. Electronically Signed By: Aron [email or web address]:12/23/2023 21:21:11 copy to: Erasmo Jenkins letter sent: Clinical Evaluation ACR BI-RADS Category 2: Benign
--- NOTE | 2023-12-23 13:24 | DI.MG.S_ITS ---
BILATERAL DIGITAL DIAGNOSTIC MAMMOGRAM 3D/2D: 12/23/2023 CLINICAL: Right breast lump and pain. Comparison is made to exams dated: 03/13/2022 mammogram and 02/26/2021 mammogram - [facility]. The breasts are almost entirely fatty (category a/<25% glandular tissue). There is a stable benign area of fat necrosis with biopsy marking clip in the right breast at 12 o'clock in the anterior depth. There is a 0.5 cm oval fat containing mass with a circumscribed margin and coarse calcifications in the right breast at 2 o'clock anterior depth. This correlates as palpated and to the area of reported pain. No other significant masses, calcifications, or other findings are seen in either breast. IMPRESSION: INCOMPLETE: NEED ADDITIONAL IMAGING EVALUATION The 0.5 cm oval fat containing mass in the right breast most likely is fat necrosis and is indeterminate. An ultrasound is recommended. Based on the Tyrer Cuzick model (a risk assessment model) the patient's lifetime risk is 6.3% and her 10 year risk is 1.3%. According to the ACR, ACS, and NCCN guidelines, an annual breast MRI exam along with mammogram is recommended if the patient's lifetime risk is 20% or greater. This exam was interpreted at Station ID: [id number]. NOTE: For mammograms, a report in lay terms will be sent to the patient. Approximately 15% of breast malignancies will not be visualized mammographically. In the management of a palpable breast mass, a negative mammogram must not discourage biopsy of a clinically suspicious lesion. Electronically Signed By: Aron [email or web address]:12/23/2023 21:18:37 copy to: Erasmo Jenkins ACR BI-RADS Category 0: Incomplete: Need Additional Imaging Evaluation
== END ==
PROVIDERS: Family Provider Family Medicine; PCP Family Medicine; Referring Provider Family Medicine; Visit Provider Family Medicine
DX: R92.8 Other abnormal and inconclusive findings on diagnostic imaging of breast (principal); S20.01XA Contusion of right breast, initial encounter; N63.12 Unspecified lump in the right breast, upper inner quadrant
CPT/HCPCS: 76642; 77066; G0279

== ENCOUNTER → 2025-01-12 09:41 | Outpatient (CLI) | payer OTHER, SELFPAY ==
--- NOTE | 2025-01-12 09:42 | DI.MG.S_ITS ---
MM screening mammo BI: 01/12/2025. BI-RADS: 2 CLINICAL: 49-year old female for bilateral screening mammogram. Tyrer-Cuzick lifetime risk of 6.1%. No personal or first-degree family history of breast cancer. The patient had a prior right breast biopsy. The patient is status-post reduction mammoplasty. PRIOR EXAMS 12/23/2023, 03/13/2022, 02/26/2021, 01/26/2016. MAMMOGRAPHY TECHNIQUE: 2D and 3D (tomosynthesis) digital mammographic views obtained, with additional images as needed for full coverage. Current study was also evaluated with a Computer Aided Detection (CAD) system. DENSITY A. The breasts are almost entirely fatty. MAMMOGRAPHY FINDINGS Right: Biopsy marker present on the right. Benign-appearing calcifications noted on the right. There are no suspicious masses, calcifications, or other findings in the breast. Left: No suspicious mass, asymmetry, microcalcification, or other abnormality seen. IMPRESSION: Right * No evidence of malignancy with benign findings. Left * No evidence of malignancy. RECOMMENDATIONS Bilateral * Annual screening mammography. OVERALL ASSESSMENT CATEGORY BI-RADS-2: Benign. The [employer] recommends annual screening mammography beginning at age 40 for women with average risk of breast cancer. ELECTRONICALLY SIGNED: Gurmeet Sexton M.D. on 01/14/2025 at 08:31:31 AM PT Interpreting Station ID: [id number]
== END ==
LOC: MAMMO 09:41
PROVIDERS: Family Provider Family Medicine; PCP Family Medicine; Referring Provider Family Medicine; Visit Provider Family Medicine
DX: Z12.31 Encounter for screening mammogram for malignant neoplasm of breast (principal)
CPT/HCPCS: 77063; 77067